=== PATIENT | male | born 1955 | race Caucasian/White ===

== ENCOUNTER 2017-10-13 09:25 | Day surgery (SDC) | payer BC ==
[2017-10-03 15:34] VITALS: BMI 25.4
[~2017-10-13 09:25] MED LIST: oxyCODONE HCL 10 MG SUSTAINED ACTING TABLET PO ONE
[2017-10-13] MEDS ORDERED: THROMBIN (BOVINE) 5,000 UNIT VIAL TP ONE ×3 (10:05→12:20)
[2017-10-13] MEDS ORDERED: methylPREDNISolone ACET (DEPO) 40 MG/1 ML VIAL ONE (10:06)
[2017-10-13] MEDS ORDERED: LIDOCAINE 1%/EPI 1:100000 (20 ML MULTI DOSE VIAL) ONE (10:06)
[2017-10-13] MEDS ORDERED: MIDAZOLAM HCL 2 MG/2 ML SINGLE DOSE VIAL ONE ×2 (10:27→11:29)
[2017-10-13] MEDS ORDERED: DEXAMETHASONE SOD PHOSPHATE/PF 10 MG/ML SDV ONE (10:27)
[2017-10-13] MEDS ORDERED: BUPIVACAINE HCL/PF (5 MG/ML) 30 ML VIAL IJ ONE (10:27)
--- NOTE | 2017-10-13 10:49 | HP ---
History & Physical Update - History History: No Change - Physical Physical: No Change - Assessment Assessment: No Change - Plan Plan: No Change
[2017-10-13] MEDS ORDERED: ceFAZolin SODIUM 1 GM VIAL ONE (10:59)
[2017-10-13] MEDS ORDERED: SUCCINYLCHOLINE CHLORIDE 200 MG/10 ML VIAL ONE (10:59)
[2017-10-13] MEDS ORDERED: LIDOCAINE 1%/EPI 1:100000 (20 ML MULTI DOSE VIAL) INF ONE (11:47)
[2017-10-13] MEDS ORDERED: methylPREDNISolone ACET (DEPO) 40 MG/1 ML VIAL IM ONE ×2 (11:48→12:19)
[2017-10-13] MEDS ORDERED: GELATIN SPONGE,ABSORBABLE 1 GM PACKET TP ONE ×2 (11:50→12:20)
[2017-10-13] MEDS ORDERED: PROPOFOL 20 ML ONE (11:51)
--- NOTE | 2017-10-13 12:50 | SURG ---
Surgery Flat Bed Knitter Note Flat Bed Knitter: Evelyn Riley PA-C Date of Service: 10/13/17 Diagnosis: lumbar stenosis Procedure: laminectomy of L4-L5 and L5-S1 I was present for the entirety of the operative procedure. For further detail, please refer to operative report. Visit type - Case Type Case Type: Scheduled Admission - Emergency Emergency Visit: No - New patient This patient is new to me today: Yes Date on this admission: 10/13/17
--- NOTE | 2017-10-13 12:50 | OP ---
Operative Note - Note: Operative Date: 10/13/17 Pre-Operative Diagnosis: lumbar stenosis Operation: L4/5 and L5/S1 laminectomy Surgeon: Lawson Gotti Emergency Generator Mechanic: Evelyn Riley Anesthesiologist/GRINDER DRESSER: Gabi Avila Anesthesia: Spinal Estimated Blood Loss (mls): 30 Fluid Volume Replaced (mls): 800 Operative Report Dictated: Yes
[2017-10-13] MEDS ORDERED: oxyCODONE HCL 5 MG TABLET PO PRN (14:20)
[2017-10-13] MEDS ORDERED: ONDANSETRON 4 MG/2 ML VIAL IVPUSH PRN (14:20)
[2017-10-13] MEDS ORDERED: LACTATED RINGERS SOLUTION 1,000 ML IV SCH (14:30)
[2017-10-13] MEDS ORDERED: oxyCODONE HCL 5 MG TABLET ONE (15:13)
[2017-10-13 16:02] VITALS: BP 158/80; PULSE 67; TEMP 97.9
--- NOTE | 2017-10-13 21:50 | OP ---
DATE OF OPERATION: 10/13/2017 PREOPERATIVE DIAGNOSIS: Spinal stenosis, L4 to S1. POSTOPERATIVE DIAGNOSIS: Spinal stenosis, L4 to S1. PROCEDURE PERFORMED: Laminectomy, L4-5 and L5-S1. SURGEON: Lawson Gotti MD WAGON WASHER: KENYON Garcia ESTIMATED BLOOD LOSS: 50 mL INTRAVENOUS FLUIDS: Per Anesthesia. ANESTHESIA: Spinal/TLIP. DISPOSITION: The patient brought to the PACU in stable condition. INDICATION FOR SURGERY: The patient is a 62-year-old gentleman who has been suffering from pain from his back down his leg. X-rays and MRI were completed which noted that he had spinal stenosis at L4-5 and L5-S1. He had gone through an exhaustive course of treatment for this, which included medications, physical therapy as well as injections. Unfortunately, his pain continued to persist despite all this. At this point, risks, benefits, and alternatives were discussed, and the patient consented to surgery. DESCRIPTION OF PROCEDURE: Patient was brought to the operating room by the Anesthesia staff. After appropriate patient identification was performed, spinal anesthesia was given. A TLIP block was also given. Patient was able to position himself prone onto the Lukas frame, and all areas of bony prominences were well padded at this time. Two needles were placed into his back to brennan off the L4 to S1 segments. X-ray was taken to confirm this as correct. Winston were removed, and 10 mL of lidocaine with epinephrine were injected in his back at this time. His back was prepped and draped in a sterile manner. At this point, a timeout was completed. An incision was made from the top of L4 down to the bottom of S1. Dissection was carried down to the fascia. Fascia was split open at this time, and appropriate retractors were then placed in. A spinal needle was placed onto the L5 lamina. An x-ray was taken to confirm this as correct. The needle was removed, and the microscope was brought in. At this point, the interspinous ligament at L4-5 and L5-S1 was removed. The spinous process at L5 was removed. The lamina of L5 was removed. A complete decompression was performed such that by the end of the procedure the L5 and S1 nerve roots appeared to be well decompressed. All bleeding was well controlled at this time. Steroid was placed over the nerve root. FloSeal was placed over that. The fascia was closed with a No. 1 Vicryl suture. Subcutaneous tissues were closed with 2-0 Vicryl suture. Skin was closed with 3-0 Monocryl suture. Dermabond was applied. Steri-Strips were applied. A sterile dressing was applied. Patient was placed supine on the OR bed and brought to the PACU in stable condition. Shiela TYLER/[id number]
== END 2017-10-13 16:03 | disposition home or self-care (01) ==
LOC: FASU 09:25
PROVIDERS: ATTEND Orthopaedic Surgery Orthopaedic Surgery of the Spine
PROC: 01NB0ZZ Release Lumbar Nerve, Open Approach (ICD-10-PCS; principal; 2017-10-13 11:38)
DX: M48.061 Spinal stenosis, lumbar region without neurogenic claudication (principal); M48.07 Spinal stenosis, lumbosacral region
CPT/HCPCS: 94760

== ENCOUNTER 2018-11-03 17:29 | Observation (INO) | payer BC ==
--- NOTE | 2018-11-03 17:45 | PDOC ---
Rapid Medical Evaluation Chief Complaint: Chest Pain Medical Evaluation: Allergies Allergy/AdvReac Type Severity Reaction Status Date / Time No Known Allergies Allergy Verified 10/03/17 15:21 I have performed a brief in-person evaluation of this patient. The patient presents with a chief complaint of: hx of HTN, HLD, GERD, depression , c/o sob and tightness across chest x 2 days Pertinent physical exam findings: In NAD, lungs clear I have ordered the following: Labs, CXR, EKG The patient will proceed to the ED for further evaluation. 11/03/18 17:40 Discharge Disposition - Discharge Dispostion Condition at time of disposition: Stable - Referrals - Patient Instructions - Post Discharge Activity
[2018-11-03 18:11] LABS: BASO % 0.8 % (0-2.0); EOS % 2.4 % (0-4.5); HEMATOCRIT 42.4 % (35.4-49); HEMOGLOBIN 14.7 GM/dL (11.7-16.9); MCH 30.8 pg (25.7-33.7); MCHC 34.7 g/dl (32.0-35.9); MEAN PLT VOLUME 9.3 fl (7.5-11.1); MONO % 14.3 % (3.8-10.2); NEUT % 55.5 % (42.8-82.8); PLATELET COUNT 195 K/MM3 (134-434); RBC 4.76 M/mm3 (4.00-5.60); RDW 16.2 % (11.9-15.9); WHITE BLOOD COUNT 6.5 K/mm3 (4.0-10.0)
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
[2018-11-03] MEDS ORDERED: ASPIRIN 81 MG CHEWABLE TABLETS PO ONE ×2 (18:33→18:34)
[2018-11-03 18:38] LABS: ANION GAP 9 MMOL/L (8-16); BLOOD UREA NITROGEN 16 mg/dL (7-18); CALCIUM 9.8 mg/dL (8.5-10.1); CHLORIDE 102 mmol/L (98-107); CO2 27 mmol/L (21-32); GLUCOSE,RANDOM 92 mg/dL (74-106); POTASSIUM 4.2 mmol/L (3.5-5.1); SODIUM 138 mmol/L (136-145)
[2018-11-03] MEDS ORDERED: ASPIRIN 81 MG CHEWABLE TABLETS ONE (19:37)
--- NOTE | 2018-11-03 19:39 | PDOC ---
Attending Attestation - HPI HPI: 11/03/18 19:57 The patient is a 63 year old male with a significant past medical history of hypertension who presents to the emergency department with chest pain since earlier today.. The patient reports that he was driving home from work today when he felt an onset of chest pain. He states that his chest pain is felt across his chest but is non radiating. The patient states that he had a similar episode yesterday by which he was seen at [facility] and given medication and advised to go the the ED. the patient reports that his chest pain is worsened with inspiration and lasts several seconds. He states that he has had stress tests in the past but does not recall when his last one was. He also reports family history or SD (brother and sister ). He also reports some productive cough with his symptoms. The patient denies any other symptoms or complaints. Documentation prepared by Brenda Pop, acting as medical imaging specialist for Rama Pickett MD. <Brenda Pop - Last Filed: 11/03/18 19:50> - Resident Resident Name: Thang Canela - ED Attending Attestation I have performed the following: I have examined & evaluated the patient, The case was reviewed & discussed with the resident, I agree w/resident's findings & plan - Physicial Exam PE: 11/03/18 20:02 Agree with resident's exam - Medical Decision Making 11/03/18 20:03 63-year-old male with history of hypertension presents with chest pain Patient has multiple risk factors and repeated episodes of pain over the last 48 hours now worsening, Plan for admission to medical service for serial enzymes and further evaluation EKG showed a normal sinus rhythm at 82 beats [address] elevations There is a right bundle-branch block present On reevaluation at 7:57 PM patient is chest pain-free <Rama Pickett - Last Filed: 11/03/18 20:03>
[2018-11-03] MEDS ORDERED: cloNIDine HCL 0.1 MG TABLET PO ONE (21:30)
--- NOTE | 2018-11-03 22:19 | PN ---
Teaching Attending Note Name of Resident: Shweta Lopes ATTENDING PHYSICIAN STATEMENT I saw and evaluated the patient. I reviewed the resident's note and discussed the case with the resident. I agree with the resident's findings and plan as documented. SUBJECTIVE: Seen and examined; please refer to resident note for further historical documentation. Briefly, this is a 63 y/o male presenting with 2 days of chest discomfort. Yesterday at work he noted some chest heaviness substernally that waxed and waned and his coworker noted a conjunctival hemorrhage. He went to urgent care who gave him BP medication (HCTZ 12.5) and diagnosed him with HTN; unknown how high his values were then. They encouraged him to go to the ER but he declined. Today, his CP worsened and it became more frequent so he came in. He had a remote stress test and no history of cath. Once saw a salad counter attendant but hasn't seen one here in years. 10 sys ROS done and negative aside from HPI PMH, PSH, Family hx, Social hx reviewed Medication list pending reconciliation OBJECTIVE: VS, labs, imaging reviewed NAD, AAO, resting comfortably in bed NC AT EOMI PERRLA RRR s1/2 slight systolic murmur no S3/4 Lungs CTAB, w/ sym CN2-12 wnl, no fnd Normal mood, appropriate behavior EKG reviewed CXR reviewed Initial troponin negative ASSESSMENT AND PLAN: Patient presents with chest tightness and hypertensive urgency; negative EKG/ troponin. Will need to control BP and r/o ACS 1) Hypertensive Urgency -Telemetry; he took his home dose of HCTZ 12.5 at home and was also treated in ER. BP now 170s with initially in 190s. Would ideally like SBP 150-160 range. Giving additional PRNs now; can try hydralazine overnight. Add norvasc 5 as given his degree of HTN he will likely require 2 agents for retirement control and the norvasc will take some time to take effect 2) Chest Discomfort, r/o ACS -Telemetry, trend troponin, check A1c/TSH/Lipids. He has risk factors for ACS. Checking echo. CV consult in the AM for stress testing recommendations. 3) HLD -Continue statin; check lipids Full Code
[2018-11-03] MEDS ORDERED: hydrALAZINE HCL 20 MG/ML VIAL IVPUSH PRN (22:42)
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
[2018-11-03] MEDS ORDERED: cloNIDine HCL 0.1 MG TABLET ONE (22:56)
[2018-11-03] MEDS ORDERED: amLODIPine BESYLATE 5 MG TABLET (FP) PO ONE (22:58)
[2018-11-03] MEDS ORDERED: amLODIPine BESYLATE 5 MG TABLET (FP) ONE (23:54)
[2018-11-04] MEDS ORDERED: ZOLPIDEM TARTRATE 5 MG TABLET ONE (00:39)
[2018-11-04] MEDS: ZOLPIDEM TARTRATE 5 MG TABLET PO PRN ×2 (00:41→21:46)
[2018-11-04 06:42] LABS: HEMATOCRIT 40.8 % (35.4-49); HEMOGLOBIN 13.8 GM/dL (11.7-16.9); LYMPH % 20.8 % (8-40); MCH 30.2 pg (25.7-33.7); MCHC 33.9 g/dl (32.0-35.9); MEAN CELL VOLUME 88.9 fl (80-96); MEAN PLT VOLUME 9.1 fl (7.5-11.1); MONO % 13.9 % (3.8-10.2); NEUT % 59.3 % (42.8-82.8); PLATELET COUNT 194 K/MM3 (134-434); RBC 4.59 M/mm3 (4.00-5.60); RDW 16.3 % (11.9-15.9); WHITE BLOOD COUNT 5.3 K/mm3 (4.0-10.0)
[2018-11-04 07:47] LABS: CHOLESTEROL 169 mg/dL (50-200); HDL CHOLESTEROL 56 mg/dL (40-60); TRIGLYCERIDES 88 mg/dL (0-150)
[2018-11-04 08:07] LABS: ANION GAP 6 MMOL/L (8-16); BLOOD UREA NITROGEN 18 mg/dL (7-18); CALCIUM 8.6 mg/dL (8.5-10.1); CHLORIDE 102 mmol/L (98-107); CO2 27 mmol/L (21-32); GLUCOSE,RANDOM 99 mg/dL (74-106); MAGNESIUM 2.5 mg/dL (1.8-2.4); PHOSPHOROUS 3.6 mg/dL (2.5-4.9); POTASSIUM 4.1 mmol/L (3.5-5.1); SODIUM 135 mmol/L (136-145)
--- NOTE | 2018-11-04 08:53 | PN ---
Progress Note, Physician Chief Complaint: No c/o chest pain or SOB - Current Medication List Current Medications: Active Medications Amlodipine Besylate (Norvasc -) 5 mg PO DAILY JEANNIE Aspirin (Ecotrin -) 81 mg PO DAILY JEANNIE Atorvastatin Calcium (Lipitor -) 20 mg PO HS JEANNIE Chlorthalidone (Hygroton -) 12.5 mg PO DAILY JEANNIE Enoxaparin Sodium (Lovenox -) 40 mg SQ DAILY JEANNIE Pantoprazole Sodium (Protonix -) 20 mg PO DAILY JEANNIE Quetiapine Fumarate (Seroquel -) 25 mg PO HS JEANNIE Zolpidem Tartrate (Ambien -) 5 mg PO HS PRN PRN Reason: INSOMNIA Last Admin: 11/04/18 00:41 Dose: 5 mg - Objective Vital Signs: Vital Signs Temperature 98.1 F 11/04/18 07:15 Pulse Rate 66 11/04/18 07:15 Respiratory Rate 16 11/04/18 07:15 Blood Pressure 131/67 11/04/18 07:15 O2 Sat by Pulse Oximetry (%) 100 11/04/18 07:15 Elderly M HEENT: NECK: CHEST: CVS: ABD: EXT: [employer] SECURITIES TRADER: DERM: Labs: CBC, BMP 11/04/18 05:30 11/04/18 05:30 - ....Imaging Chest X-ray: Report Reviewed (Normal) EKG: Report Reviewed (No acute St T chnages) Problem List - Problems (1) Chest pain Code(s): R07.9 - CHEST PAIN, UNSPECIFIED Qualifiers: Chest pain type: chest pain on breathing Qualified Code(s): R07.1 - Chest pain on breathing; R07.81 - Pleurodynia (2) HTN (hypertension) Code(s): I10 - ESSENTIAL (PRIMARY) HYPERTENSION (3) Hypercholesteremia Code(s): E78.00 - PURE HYPERCHOLESTEROLEMIA, UNSPECIFIED (4) Depressed Code(s): F32.9 - MAJOR DEPRESSIVE DISORDER, SINGLE EPISODE, UNSPECIFIED
[2018-11-04] MEDS: PANTOPRAZOLE 20 MG TABLET (FP) PO SCH (10:00)
[2018-11-04] MEDS: ASPIRIN COATED 81 MG TABLET.EC PO SCH (10:00)
[2018-11-04] MEDS: CHLORTHALIDONE 25 MG TABLET PO SCH (10:00)
[2018-11-04] MEDS: amLODIPine BESYLATE 5 MG TABLET (FP) PO SCH (10:00)
[2018-11-04] MEDS: ENOXAPARIN NA (PORCINE) 40 MG/0.4 ML DISP.SYRIN SQ SCH (10:00)
--- NOTE | 2018-11-04 10:44 | EKG ---
Test Reason : Blood Pressure : / mmHG Vent. Rate : 082 BPM Atrial Rate : 082 BPM P-R Int : 134 ms QRS Dur : 102 ms QT Int : 382 ms P-R-T Axes : 039 -11 038 degrees QTc Int : 446 ms NORMAL SINUS RHYTHM INCOMPLETE RIGHT BUNDLE BRANCH BLOCK BORDERLINE ECG NO PREVIOUS ECGS AVAILABLE Confirmed by SHIVANI KENNEDY MD ([id number]) on 11/04/2018 10:44:25 AM Referred By: Confirmed By:SHIVANI KENNEDY MD
--- NOTE | 2018-11-04 12:52 | ECHO ---
Name: RIDER, BATISTA Exam:Adult Echocardiogram Study Date: 11/04/2018 10:07 AM Age: 63 yrs Reason For Study: chest pain Height: 65 in Weight: 153 lb BSA: 1.8 m2 MMode/2D Measurements & Calculations IVSd: 1.2 cm Ao root diam: 3.6 cm LVIDd: 4.0 cm LA dimension: 3.5 cm LVIDs: 2.5 cm ACS: 1.9 cm LVPWd: 1.0 cm IVSs: 1.2 cm LVPWs: 1.5 cm EDV(Teich): 71.2 ml ESV(Teich): 22.5 ml Doppler Measurements & Calculations MV E max etienne: 50.3 cm/sec Ao V2 max: 127.7 cm/sec MV A max etienne: 74.0 cm/sec Ao max P.5 mmHg MV E/A: 0.68 Ao V2 mean: 84.0 cm/sec Ao mean P.2 mmHg Ao V2 VTI: 22.2 cm TR max etienne: 115.4 cm/sec Med Peak E' Etienne: 5.0 cm/sec TR max P.3 mmHg Med E/e': 10.1 Lat Peak E' Etienne: 4.6 cm/sec Lat E/e': 11.0 Procedure A two-dimensional transthoracic echocardiogram with color flow and Doppler was performed. Left Ventricle The left ventricular size, thickness and function are normal. The left ventricular ejection fraction is normal. E/A reversal consistent with but not diagnostic of poor LV compliance. The left ventricular w all motion is normal. Right Ventricle The right ventricle is normal in size and function. A moderator band is seen in the right ventricle. Atria Normal left and right atrial size and function. Mitral Valve There is mild mitral valve thickening. There is no mitral valve stenosis. There is mild mitral regurg itation. Tricuspid Valve There is mild tricuspid valve thickening. There is no tricuspid stenosis. There is mild tricuspid regurgitation. Right ventricular systolic pressure is normal. Aortic Valve The aortic valve is normal in structure and function. No hemodynamically significant valvular aortic stenosis. No aortic regurgitation is present. Pulmonic Valve The pulmonic valve is not well visualized. Great Vessels The aortic root is normal size. Pericardium/Pleura There is no pericardial effusion. Interpretation Summary The left ventricular ejection fraction is normal. The left ventricular size, thickness and function are normal The left ventricular wall motion is normal. There is mild mitral regurgitation. There is mild tricuspid regurgitation. Right ventricular systolic pressure is normal. E/A reversal consistent with but not diagnostic of poor LV compliance A moderator band is seen in the right ventricle. MD Andrea Patrick 11/04/2018 12:51 PM
--- NOTE | 2018-11-04 14:47 | PN ---
Physical Exam: SUBJECTIVE: Patient seen and examined Pt son was present at bed side who states that yesterday when his father complaint of chest pain at the same time he has slurred speech, some tingling sensation in right leg, and confusion. But now he is back to base line. States he was never on htn medication. OBJECTIVE: Vital Signs Period Temp Pulse Resp BP Sys/Stewart Pulse Ox Last 24 Hr 97.9 F-99.0 F 66-82 16-99 119-195/64-93 97-100 GENERAL: Awake, alert, and fully oriented, in no acute distress. HEAD: Normal with no signs of trauma. EYES: PERRLA, EOMI, sclera anicteric,+Left conjunctival injection EARS, NOSE, THROAT: Ears normal, oropharynx clear without exudates. Moist mucous membranes. NECK: Normal range of motion, supple without lymphadenopathy, JVD, or masses. LUNGS: Breath sounds equal, clear to auscultation bilaterally. HEART: Regular rate and rhythm, normal S1 and S2 without murmur, rub or gallop. ABDOMEN: Soft, nontender, not distended, normoactive bowel sounds. MUSCULOSKELETAL: Normal range of motion at all joints. No CVA tenderness. UPPER EXTREMITIES: 2+ pulses, warm, well-perfused. No peripheral edema. LOWER EXTREMITIES: 2+ pulses, warm, well-perfused. No peripheral edema. NEUROLOGICAL: Cranial nerves II-XII intact. Motor strength 5/5, sensation intact. Normal speech. Normal gait. PSYCHIATRIC: Cooperative. Good eye contact. Appropriate mood and affect. SKIN: Warm, dry, normal turgor, no rashes or lesions. Laboratory Results - last 24 hr 11/03/18 11/03/18 11/03/18 17:52 17:52 21:10 WBC 6.5 RBC 4.76 Hgb 14.7 Hct 42.4 MCV 89.0 MCH 30.8 MCHC 34.7 RDW 16.2 H Plt Count 195 MPV 9.3 Absolute Neuts (auto) 3.6 Neutrophils % 55.5 Lymphocytes % 27.0 Monocytes % 14.3 H Eosinophils % 2.4 Basophils % 0.8 Nucleated RBC % 0 D-Dimer Sodium 138 Potassium 4.2 Chloride 102 Carbon Dioxide 27 Anion Gap 9 BUN 16 Creatinine 1.0 Creat Clearance w eGFR > 60 Random Glucose 92 Hemoglobin A1c % Calcium 9.8 Phosphorus Magnesium Troponin I 0.02 0.02 Triglycerides Cholesterol Total LDL Cholesterol HDL Cholesterol Vitamin B12 Serum Folate TSH 11/03/18 11/04/18 11/04/18 23:25 05:30 05:30 WBC 5.3 RBC 4.59 Hgb 13.8 Hct 40.8 MCV 88.9 MCH 30.2 MCHC 33.9 RDW 16.3 H Plt Count 194 MPV 9.1 Absolute Neuts (auto) 3.1 Neutrophils % 59.3 Lymphocytes % 20.8 D Monocytes % 13.9 H Eosinophils % 5.0 H D Basophils % 1.0 Nucleated RBC % 0 D-Dimer < 215 Sodium 135 L Potassium 4.1 Chloride 102 Carbon Dioxide 27 Anion Gap 6 L BUN 18 Creatinine 1.0 Creat Clearance w eGFR > 60 Random Glucose 99 Hemoglobin A1c % Calcium 8.6 Phosphorus 3.6 Magnesium 2.5 H Troponin I Triglycerides Cholesterol Total LDL Cholesterol HDL Cholesterol Vitamin B12 Serum Folate 29 H TSH 4.84 H 11/04/18 11/04/18 11/04/18 05:30 05:30 05:30 WBC RBC Hgb Hct MCV MCH MCHC RDW Plt Count MPV Absolute Neuts (auto) Neutrophils % Lymphocytes % Monocytes % Eosinophils % Basophils % Nucleated RBC % D-Dimer Sodium Potassium Chloride Carbon Dioxide Anion Gap BUN Creatinine Creat Clearance w eGFR Random Glucose Hemoglobin A1c % 5.6 Calcium Phosphorus Magnesium Troponin I 0.02 Triglycerides 88 Cholesterol 169 Total LDL Cholesterol 104 H HDL Cholesterol 56 Vitamin B12 587 Serum Folate TSH Active Medications Generic Name Dose Route Start Last Admin Trade Name Freq PRN Reason Stop Dose Admin Amlodipine Besylate 5 mg 11/04/18 10:00 11/04/18 10:00 Norvasc - PO 5 mg DAILY JEANNIE Administration Aspirin 81 mg 11/04/18 10:11/04/18 10:00 Ecotrin - PO 81 mg DAILY JEANNIE Administration Atorvastatin Calcium 20 mg 11/04/18 22:00 Lipitor - PO HS [facility] Chlorthalidone 12.5 mg 11/04/18 10:00 11/04/18 10:00 Hygroton - PO 12.5 mg DAILY JEANNIE Administration Enoxaparin Sodium 40 mg 11/04/18 10:00 11/04/18 10:00 Lovenox - SQ 40 mg DAILY JEANNIE Administration Pantoprazole Sodium 20 mg 11/04/18 10:00 11/04/18 10:00 Protonix - PO 20 mg DAILY JEANNIE Administration Quetiapine Fumarate 25 mg 11/04/18 22:00 Seroquel - PO HS JEANNIE Zolpidem Tartrate 5 mg 11/04/18 22:00 11/04/18 00:41 Ambien - PO 5 mg HS PRN Administration INSOMNIA ASSESSMENT/PLAN: Patient is a 63 year old male with past medical history of HTN, HLD, GERD and Depression presented with sudden intermittent episodes of chest pain that started at 4pm today. #Hypertensive urgency with htn encephalopathy - pt feels good, back to base line as per family. - bp well controlled with amlodipine and chlorthalidone - monitor vital - ct chest negative - doppler neck no significant stenosis - echo reviewed - cardiology and neuology consult. #Chest pain, rule out ACS -Trop 0.02 x2, EKG NSR with nor ST-T wave changes -will continue ASA 81mg daily -Tele monitoring -Cardiology (Dr. Bradley) #HLD -Continue home Lipitor 20mg -Lipid profile ordered #FEN -Not on any standing fluids -Electrolytes wnl, routine bmp monitoring #Prophylaxis -Lovenox 40mg sq daily #Disposition -full code -tele obs Visit type - Emergency Visit Emergency Visit: Yes ED Registration Date: 11/03/18 Care time: The patient presented to the Emergency Department on the above date and was hospitalized for further evaluation of their emergent condition. - New Patient This patient is new to me today: No - Critical Care Critical Care patient: No
--- NOTE | 2018-11-04 15:12 | CON.CARD ---
Consult Consult Specialty:: Cardiology Referred by:: ER Reason for Consultation:: chest pain - History of Present Illness Chief Complaint: chest pain History of Present Illness: Patient is a 63 year old male with past medical history of HTN, HLD, GERD and Depression presented with sudden intermittent episodes of chest pain that is nonexertional, pleuritic, with sob that has been occurring for one day. No associated symptoms. No radiation. Baseline exercise tolerance is good. ECG showed irbbb aroldo negative. CXR negative. - History Source History Provided By: Patient, Medical Record - Alcohol/Substance Use Hx Alcohol Use: No - Smoking History Smoking history: Never smoked Have you smoked in the past 12 months: No If you are a former smoker, when did you quit?: 40 YEARS AGO Home Medications - Allergies Allergies/Adverse Reactions: Allergies Allergy/AdvReac Type Severity Reaction Status Date / Time No Known Allergies Allergy Verified 10/03/17 15:21 - Home Medications Home Medications: Ambulatory Orders Atorvastatin Ca [Lipitor] 20 mg PO HS 11/03/18 Chlorthalidone 25 mg PO DAILY 11/03/18 Esomeprazole Magnesium [Nexium 24Hr] 20 mg PO DAILY 11/03/18 Quetiapine Fumarate [Seroquel -] 25 mg PO HS 11/03/18 Zolpidem Tartrate [Ambien] 5 mg PO HS 11/03/18 Vital Signs: Vital Signs Temperature 99.0 F 11/04/18 14:00 Pulse Rate 82 11/04/18 14:00 Respiratory Rate 20 11/04/18 14:00 Blood Pressure 119/64 11/04/18 14:00 O2 Sat by Pulse Oximetry (%) 100 11/04/18 10:00 Constitutional: Yes: No Distress, Calm Eyes: Yes: Conjunctiva Clear, EOM Intact HENT: Yes: Atraumatic, Normocephalic Neck: Yes: Supple, Trachea Midline Respiratory: Yes: CTA Bilaterally Gastrointestinal: Yes: Normal Bowel Sounds, Soft Cardiovascular: Yes: Regular Rate and Rhythm JVD: No Carotid Bruit: No PMI: Non-Displaced Heart Sounds: Yes: S1, S2 Musculoskeletal: Yes: WNL Extremities: Yes: WNL Edema: No Peripheral Pulses WNL: Yes - Other Data Labs, Other Data: CBC, BMP 11/04/18 05:30 11/04/18 05:30 Troponin, BNP 02/11/03/18 11/04/18 17:52 21:10 05:30 Troponin I 0.02 0.02 0.02 Troponin, BNP 11/03/18 11/03/18 11/04/18 17:52 21:10 05:30 Troponin I 0.02 0.02 0.02 Imaging - Results Chest X-ray: Report Reviewed EKG: Report Reviewed (nsr irbbb) Assessment/Plan Patient is a 63 year old male with past medical history of HTN, HLD, GERD and Depression presented with sudden intermittent episodes of chest pain that is nonexertional, pleuritic, with sob that has been occurring for one day. No associated symptoms. No radiation. Baseline exercise tolerance is good. ECG showed irbbb aroldo negative. CXR negative. chest pain--atypical for angina. troponin and d dimer are negative CXR and ecg negative would dc home for outpatient workup.
--- NOTE | 2018-11-04 17:19 | PN ---
Teaching Attending Note Name of Resident: Radu Slaazar ATTENDING PHYSICIAN STATEMENT I saw and evaluated the patient. I reviewed the resident's note and discussed the case with the resident. I agree with the resident's findings and plan as documented. 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 ASSESSMENT AND PLAN: 63 yrs old man with H/O HTN non compliant present with chest pain that is pleuritic with confusion and slurring of speech observed by the son, normal serail CE and ECHO Problem List - Problems (1) Chest pain Assessment/Plan: atypical with chest wall tenderness, no dynamic St T chnages, evaluted by cardiology normal EKG cleared to Dc home Code(s): R07.9 - CHEST PAIN, UNSPECIFIED Qualifiers: Chest pain type: chest pain on breathing Qualified Code(s): R07.1 - Chest pain on breathing; R07.81 - Pleurodynia (2) HTN (hypertension) Assessment/Plan: admitted with uncontrolled HTN BP is well controlled cont current management Code(s): I10 - ESSENTIAL (PRIMARY) HYPERTENSION (3) Hypercholesteremia Assessment/Plan: Cont statin Code(s): E78.00 - PURE HYPERCHOLESTEROLEMIA, UNSPECIFIED (4) Slurring of speech Assessment/Plan: resolved in the setting of hypertensive urgency needs w/u for TIA Code(s): R47.81 - SLURRED SPEECH
[2018-11-04] MEDS: QUEtiapine FUMARATE 25 MG TABLET (FP) PO SCH (21:46)
[2018-11-04] MEDS: ATORVASTATIN CA 20 MG TABLET (FP) PO SCH (21:46)
[2018-11-05 00:58] VITALS: BMI 24.4
--- NOTE | 2018-11-05 07:45 | PN ---
Teaching Attending Note Name of Resident: Radu Salazar ATTENDING PHYSICIAN STATEMENT I saw and evaluated the patient. I reviewed the resident's note and discussed the case with the resident. I agree with the resident's findings and plan as documented. 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 ASSESSMENT AND PLAN: 63 yrs old man with H/O HTN non compliant present with chest pain that is pleuritic with confusion and slurring of speech observed by the son, normal serial CE and ECHO Problem List - Problems (1) Chest pain Assessment/Plan: atypical with chest wall tenderness, no dynamic St T chnages, evaluted by cardiology normal EKG cleared to Dc home Code(s): R07.9 - CHEST PAIN, UNSPECIFIED Qualifiers: Chest pain type: chest pain on breathing Qualified Code(s): R07.1 - Chest pain on breathing; R07.81 - Pleurodynia (2) HTN (hypertension) Assessment/Plan: admitted with uncontrolled HTN BP is well controlled cont current management Code(s): I10 - ESSENTIAL (PRIMARY) HYPERTENSION (3) Hypercholesteremia Assessment/Plan: Cont statin Code(s): E78.00 - PURE HYPERCHOLESTEROLEMIA, UNSPECIFIED (4) Slurring of speech Assessment/Plan: resolved in the setting of hypertensive urgency needs w/u for TIA F/U MRI , Neurology input appreciated. Code(s): R47.81 - SLURRED SPEECH
--- NOTE | 2018-11-05 08:27 | DS ---
Physical Exam: SUBJECTIVE: Patient seen and examined OBJECTIVE: Vital Signs Period Temp Pulse Resp BP Sys/Stewart Pulse Ox Last 24 Hr 97.8 F-99.0 F 67-82 16-20 114-164/59-82 98-100 PHYSICAL EXAM GENERAL: Awake, alert, and fully oriented, in no acute distress. HEAD: Normal with no signs of trauma. EYES: PERRLA, EOMI, sclera anicteric,+Left conjunctival injection EARS, NOSE, THROAT: Ears normal, oropharynx clear without exudates. Moist mucous membranes. NECK: Normal range of motion, supple without lymphadenopathy, JVD, or masses. LUNGS: Breath sounds equal, clear to auscultation bilaterally. HEART: Regular rate and rhythm, normal S1 and S2 without murmur, rub or gallop. ABDOMEN: Soft, nontender, not distended, normoactive bowel sounds. MUSCULOSKELETAL: Normal range of motion at all joints. No CVA tenderness. UPPER EXTREMITIES: 2+ pulses, warm, well-perfused. No peripheral edema. LOWER EXTREMITIES: 2+ pulses, warm, well-perfused. No peripheral edema. NEUROLOGICAL: Cranial nerves II-XII intact. Motor strength 5/5, sensation intact. Normal speech. Normal gait. PSYCHIATRIC: Cooperative. Good eye contact. Appropriate mood and affect. SKIN: Warm, dry, normal turgor, no rashes or lesions. LABS CBCD WBC 5.3 K/mm3 (4.0-10.0) 11/04/18 05:30 RBC 4.59 M/mm3 (4.00-5.60) 11/04/18 05:30 Hgb 13.8 GM/dL (11.7-16.9) 11/04/18 05:30 Hct 40.8 % (35.4-49) 11/04/18 05:30 MCV 88.9 fl (80-96) 11/04/18 05:30 MCHC 33.9 g/dl (32.0-35.9) 11/04/18 05:30 RDW 16.3 % (11.9-15.9) H 11/04/18 05:30 Plt Count 194 K/MM3 (134-434) 11/04/18 05:30 MPV 9.1 fl (7.5-11.1) 11/04/18 05:30 CMP Sodium 135 mmol/L (136-145) L 11/04/18 05:30 Potassium 4.1 mmol/L (3.5-5.1) 11/04/18 05:30 Chloride 102 mmol/L (98-107) 11/04/18 05:30 Carbon Dioxide 27 mmol/L (21-32) 11/04/18 05:30 Anion Gap 6 MMOL/L (8-16) L 11/04/18 05:30 BUN 18 mg/dL (7-18) 11/04/18 05:30 Creatinine 1.0 mg/dL (0.55-1.3) 11/04/18 05:30 Creat Clearance w eGFR > 60 (>60) 11/04/18 05:30 Random Glucose 99 mg/dL (74-106) 11/04/18 05:30 Calcium 8.6 mg/dL (8.5-10.1) 11/04/18 05:30 CARDIAC ENZYMES Troponin I 0.02 ng/ml (0.00-0.05) 11/04/18 05:30 CT scan of the brain without intravenous contrast. There is mild volume loss. The ventricles and basal cisterns appear unremarkable. No mass lesion, gross acute infarct or intracranial hemorrhage are identified. There is no shift of the midline structures. Visualized paranasal sinuses and mastoid air cells are well aerated. The calvarium is intact. IMPRESSION: Mild volume loss. No gross acute intracranial pathology is identified. Correlate clinically to determine further evaluation and follow-up. HOSPITAL COURSE:Patient is a 63 year old male with past medical history of HTN, HLD, GERD and Depression presented with sudden intermittent episodes of chest pain that started at 4pm today. Patient reported experiencing sudden onset 5-6/ 10 chest pressure right after work while driving home, that was worsened with deep breathing. This lasted for a few minutes and has recurred about 5 more times before he came to the ED. Patient denies any SOB, palpitations, headache, dizziness. Patient was seen yesterday at the Urgent care center because he noted his left eye was red. His blood pressure was noted to be elevated and he was prescribed Chlorthalidone 12.5mg for which he took at around noon today. 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 And since then, has not had any palpitations, chest pain or SOB, until today. Patient denies any fever, chills, headache, dizziness, nausea, vomiting, abdominal pain, diarrhea, urinary symptoms. Pt found to have hypertensive urgency. In hospital pt got amlodine and chlorthalidone and his bp came down slowly. As his bp came down his symptoms of confusion and tingling in right leg resolved. Pt was monitored on tele floor and manager cardiac didn't show any acute event. Neurology was consulted. Pt got carotid doppler, mra neck and brain and echo. Now pt is feeling goodand all of his symptoms has resolved. Pt dc in stable condition Follow up with your primary care doctor Follow up with exercise science internship Dr. Bradley for further workup which can be done in out patient. Follow up with [facility] neurologist Take all the medicines as you were taking it before. We have started you on blood pressure medicine amlodipine 5 mg daily. We have also started you on baby aspirin Check your blood pressure regularly and make a log and give to your doctor. prescription for your meds have been sent to [facility] pharmacy [address] If you develop chest pain, shortness of breath, severe headache or any new symptoms then call your doctor or go to hospital . Date of Admission:11/03/18 Date of Discharge: 11/05/18 Minutes to complete discharge: 45 Discharge Summary Reason For Visit: CHEST PAIN Current Active Problems Chest pain (Acute) Depressed (Acute) HTN (hypertension) (Acute) Hypercholesteremia (Acute) Slurring of speech (Acute) Condition: Good - Instructions Diet, Activity, Other Instructions: Follow up with your primary care doctor Follow up with exercise science internship Dr. Bradley for further workup which can be done in out patient. Follow up with [facility] neurologist Take all the medicines as you were taking it before. We have started you on blood pressure medicine amlodipine 5 mg daily. We have also started you on baby aspirin Check your blood pressure regularly and make a log and give to your doctor. prescription for your meds have been sent to [facility] pharmacy [address] If you develop chest pain, shortness of breath, severe headache or any new symptoms then call your doctor or go to hospital Referrals: Franco Bradley MD [Staff Physician] - 1 Week Miguel Moreno MD [Primary Care Provider] - 1 Week Aravind Luna MD [Staff Physician] - 1 Week Disposition: HOME - Home Medications Comprehensive Discharge Medication List: Ambulatory Orders Atorvastatin Ca [Lipitor] 20 mg PO HS 11/03/18 Esomeprazole Magnesium [Nexium 24Hr] 20 mg PO DAILY 11/03/18 Quetiapine Fumarate [Seroquel -] 25 mg PO HS 11/03/18 Zolpidem Tartrate [Ambien] 5 mg PO HS 11/03/18 Amlodipine Besylate [Norvasc -] 5 mg PO DAILY #30 tablet 11/05/18 Aspirin Coated [Ecotrin -] 81 mg PO DAILY #30 tablet.ec 11/05/18 Chlorthalidone 25 mg PO DAILY #30 tablet 11/05/18 This patient is new to me today: No Emergency Visit: Yes ED Registration Date: 11/03/18 Care time: The patient presented to the Emergency Department on the above date and was hospitalized for further evaluation of their emergent condition. Critical Care patient: No - Discharge Referral Referred to [facility] No
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
[2018-11-05] MEDS ORDERED: PT OWN MED DRAWER 7, Y5N ONE (09:42)
[2018-11-05] MEDS: CHLORTHALIDONE 25 MG TABLET PO SCH (09:44)
[2018-11-05] MEDS: PANTOPRAZOLE 20 MG TABLET (FP) PO SCH (09:44)
[2018-11-05] MEDS: amLODIPine BESYLATE 5 MG TABLET (FP) PO SCH (09:44)
[2018-11-05] MEDS: ASPIRIN COATED 81 MG TABLET.EC PO SCH (09:44)
[2018-11-05] MEDS: ENOXAPARIN NA (PORCINE) 40 MG/0.4 ML DISP.SYRIN SQ SCH (09:45)
[2018-11-05] MEDS: ZOLPIDEM TARTRATE 5 MG TABLET PO PRN (21:25)
[2018-11-05] MEDS: ATORVASTATIN CA 20 MG TABLET (FP) PO SCH (21:25)
[2018-11-05] MEDS: QUEtiapine FUMARATE 25 MG TABLET (FP) PO SCH (21:25)
[2018-11-06 05:31] VITALS: BP 133/70; PULSE 68; TEMP 98.1
--- NOTE | 2018-11-06 08:59 | PN ---
Teaching Attending Note Name of Resident: Radu Salazar ATTENDING PHYSICIAN STATEMENT I saw and evaluated the patient. I reviewed the resident's note and discussed the case with the resident. I agree with the resident's findings and plan as documented. SUBJECTIVE: OBJECTIVE: Vital Signs Temperature 98.1 F 11/06/18 05:31 Pulse Rate 68 11/06/18 05:31 Respiratory Rate 20 11/06/18 08:10 Blood Pressure 133/70 11/06/18 05:31 O2 Sat by Pulse Oximetry (%) 96 11/06/18 07:00 Elderly man comfortable not in distress HEENT: Mm moist, no anemia, PERRLA EOMI NECK: No JVd No Bruit CHEST: CTA B/L CVS: s1S2 R ABD: No distention, non tender Bs + EXT: No kaitlynn afeet, no calf tenderness, Pulses + EMPLOYMENT LEGAL ASSISTANT: AOX3 non focal LABS: CBC, BMP 11/04/18 05:30 11/04/18 05:30 CT Head; Normal CXR: normal ECHO normal CTA chest normal no PE or dissection Serial CE: normal EKG no acute St t changes Carotid Doppler; Multiple plaques B/L no hemodynamically significant narrowing or obstruction. MRI: shows no parenchymal lesion ASSESSMENT AND PLAN: 63 yrs old man with H/O HTN non compliant present with chest pain that is pleuritic with confusion and slurring of speech observed by the son, normal serial CE and ECHO Problem List - Problems (1) Chest pain Assessment/Plan: atypical with chest wall tenderness, no dynamic St T chnages, evaluated by cardiology normal EKG cleared to Dc home Code(s): R07.9 - CHEST PAIN, UNSPECIFIED Qualifiers: Chest pain type: chest pain on breathing Qualified Code(s): R07.1 - Chest pain on breathing; R07.81 - Pleurodynia (2) HTN (hypertension) Assessment/Plan: admitted with uncontrolled HTN BP is well controlled cont current management Code(s): I10 - ESSENTIAL (PRIMARY) HYPERTENSION (3) Hypercholesteremia Assessment/Plan: Cont statin Code(s): E78.00 - PURE HYPERCHOLESTEROLEMIA, UNSPECIFIED (4) Slurring of speech Assessment/Plan: resolved in the setting of hypertensive urgency needs w/u for TIA , MRI no acute infarct, , Neurology input appreciated. Code(s): R47.81 - SLURRED SPEECH
[2018-11-06] MEDS: amLODIPine BESYLATE 5 MG TABLET (FP) PO SCH (09:22)
[2018-11-06] MEDS: PANTOPRAZOLE 20 MG TABLET (FP) PO SCH (09:22)
[2018-11-06] MEDS: CHLORTHALIDONE 25 MG TABLET PO SCH (09:22)
[2018-11-06] MEDS: ASPIRIN COATED 81 MG TABLET.EC PO SCH (09:22)
[2018-11-06] MEDS: ENOXAPARIN NA (PORCINE) 40 MG/0.4 ML DISP.SYRIN SQ SCH (09:23)
--- NOTE | 2018-11-06 10:08 | PN ---
Progress Note (short form) - Note Progress Note: Neurology HISTORY OF PRESENT ILLNESS: 63 year old male with past medical history of HTN, HLD, GERD and Depression presented with sudden intermittent episodes of chest pain that started at 4pm on day of admission. Patient reported experiencing sudden onset 5-6/10 chest pressure right after work while driving home, that was worsened with deep breathing. This lasted for a few minutes and has recurred about 5 more times before he came to the ED. Patient denied any SOB, palpitations, headache, dizziness. His blood pressure was noted to be elevated and he was prescribed Chlorthalidone 12.5mg for which he took at around noon day of admission. Of note , patient reported having nuclear stress test done about 10 years ago because he was having "palpitations", but could not remember the power marketer or the center where he did the test. And since then, has not had any palpitations, chest pain or SOB, until today. Patient denies any fever, chills, headache, dizziness, nausea, vomiting, abdominal pain, diarrhea, urinary symptoms. Neurology consulted due to concern for episode of speech disturbance and confusion. During my evaluation, patient without deficits, speech seems intact , knows location, date, name of president. CT head completed and no acute changes. Carotid showed small to moderate plaques, there was suggestion of evaluating further with CTA or MRA. MRA head and neck completed and reviewed in detail. Discussed in detail, atheromatous changes on L with minimal stenosis, no dissection, anuerysm, or occlusion. Remains on anti-HTN medications, on ASA. Planned for discharge. Active Medications Amlodipine Besylate (Norvasc -) 5 mg PO DAILY [facility] Last Admin: 11/06/18 09:22 Dose: 5 mg Aspirin (Ecotrin -) 81 mg PO DAILY [facility] Last Admin: 11/06/18 09:22 Dose: 81 mg Atorvastatin Calcium (Lipitor -) 20 mg PO HS [facility] Last Admin: 11/05/18 21:25 Dose: 20 mg Chlorthalidone (Hygroton -) 12.5 mg PO DAILY [facility] Last Admin: 11/06/18 09:22 Dose: 12.5 mg Enoxaparin Sodium (Lovenox -) 40 mg SQ DAILY [facility] Last Admin: 11/06/18 09:23 Dose: Not Given Pantoprazole Sodium (Protonix -) 20 mg PO DAILY [facility] Last Admin: 11/06/18 09:22 Dose: 20 mg Quetiapine Fumarate (Seroquel -) 25 mg PO HS [facility] Last Admin: 11/05/18 21:25 Dose: 25 mg Zolpidem Tartrate (Ambien -) 5 mg PO HS PRN PRN Reason: INSOMNIA Last Admin: 11/05/18 21:25 Dose: 5 mg PHYSICAL EXAMINATION Vital Signs Period Temp Pulse Resp BP Sys/Stewart Pulse Ox Last 24 Hr 97.3 F-98.6 F 65-89 18-20 133-157/70-84 96-96 GENERAL: Awake, alert, and fully oriented, in no acute distress. HEAD: Normal with no signs of trauma. EYES: PERRLA, EOMI, sclera anicteric,+Left conjunctival injection EARS, NOSE, THROAT: Ears normal, oropharynx clear without exudates. Moist mucous membranes. NECK: Normal range of motion, supple without lymphadenopathy, JVD, or masses. LUNGS: Breath sounds equal, clear to auscultation bilaterally. HEART: Regular rate and rhythm, normal S1 and S2 without murmur, rub or gallop. ABDOMEN: Soft, nontender, not distended, normoactive bowel sounds. MUSCULOSKELETAL: Normal range of motion at all joints. No CVA tenderness. UPPER EXTREMITIES: 2+ pulses, warm, well-perfused. No peripheral edema. LOWER EXTREMITIES: 2+ pulses, warm, well-perfused. No peripheral edema. NEUROLOGICAL: Cranial nerves II-XII intact. Motor strength 5/5, sensation intact. Normal speech. PSYCHIATRIC: Cooperative. Good eye contact. Appropriate mood and affect. SKIN: Warm, dry, normal turgor, no rashes or lesions. CBCD WBC 5.3 K/mm3 (4.0-10.0) 11/04/18 05:30 RBC 4.59 M/mm3 (4.00-5.60) 11/04/18 05:30 Hgb 13.8 GM/dL (11.7-16.9) 11/04/18 05:30 Hct 40.8 % (35.4-49) 11/04/18 05:30 MCV 88.9 fl (80-96) 11/04/18 05:30 MCHC 33.9 g/dl (32.0-35.9) 11/04/18 05:30 RDW 16.3 % (11.9-15.9) H 11/04/18 05:30 Plt Count 194 K/MM3 (134-434) 11/04/18 05:30 MPV 9.1 fl (7.5-11.1) 11/04/18 05:30 CMP Sodium 135 mmol/L (136-145) L 11/04/18 05:30 Potassium 4.1 mmol/L (3.5-5.1) 11/04/18 05:30 Chloride 102 mmol/L (98-107) 11/04/18 05:30 Carbon Dioxide 27 mmol/L (21-32) 11/04/18 05:30 Anion Gap 6 MMOL/L (8-16) L 11/04/18 05:30 BUN 18 mg/dL (7-18) 11/04/18 05:30 Creatinine 1.0 mg/dL (0.55-1.3) 11/04/18 05:30 Creat Clearance w eGFR > 60 (>60) 11/04/18 05:30 Random Glucose 99 mg/dL (74-106) 11/04/18 05:30 Calcium 8.6 mg/dL (8.5-10.1) 11/04/18 05:30 CARDIAC ENZYMES Troponin I 0.02 ng/ml (0.00-0.05) 11/04/18 05:30 ASSESSMENT/PLAN: 63 year old male with past medical history of HTN, HLD, GERD and Depression presented with sudden intermittent episodes of chest pain that started at 4pm on day of admission. Patient reported experiencing sudden onset 5-6/10 chest pressure right after work while driving home, that was worsened with deep breathing. This lasted for a few minutes and has recurred about 5 more times before he came to the ED. Patient denied any SOB, palpitations, headache, dizziness. His blood pressure was noted to be elevated and he was prescribed Chlorthalidone 12.5mg for which he took at around noon day of admission. Of note , patient reported having nuclear stress test done about 10 years ago because he was having "palpitations", but could not remember the power marketer or the center where he did the test. And since then, has not had any palpitations, chest pain or SOB, until today. Patient denies any fever, chills, headache, dizziness, nausea, vomiting, abdominal pain, diarrhea, urinary symptoms. Neurology consulted due to concern for episode of speech disturbance and confusion. During my evaluation, patient without deficits, speech seems intact , knows location, date, name of president. CT head completed and no acute changes. Carotid showed small to moderate plaques, there was suggestion of evaluating further with CTA or MRA. MRA head and neck completed and reviewed in detail. Discussed in detail, atheromatous changes on L with minimal stenosis, no dissection, anuerysm, or occlusion. Remains on anti-HTN medications, on ASA. Planned for discharge. Episode possibly resolved with BP control, possibly hypertensive urgency. Monitor blood pressure, maintain normotensive range. Goal <140/90 for now, <130/80 as outpatient. Cardiology follow up. On ASA and statin. Neurologically at baseline.
== END 2018-11-06 10:21 | disposition home or self-care (01) ==
LOC: JER 17:29 → JERBED 19:51 → J4W 11-04 19:08
PROVIDERS: ADMIT Internal Medicine; ATTEND Internal Medicine
DX: R07.1 Chest pain on breathing (principal); R07.81 Pleurodynia; R07.89 Other chest pain; I16.0 Hypertensive urgency; E78.5 Hyperlipidemia, unspecified; I67.4 Hypertensive encephalopathy; K21.9 Gastro-esophageal reflux disease without esophagitis; F32.9 Major depressive disorder, single episode, unspecified; R47.81 Slurred speech
CPT/HCPCS: 36415; 70450-TC; 70544-TC; 70547-TC; 71046-TC-FY; 80048; 80061; 82607; 82746; 83036; 83721; 83735; 84100; 84443; 84484; 85025; 85379; 93005; 93010; 93306-TC; 93880-TC; 99284-25; G0378; J0735

== ENCOUNTER 2018-11-07 18:18 | Emergency (ER) | payer BC ==
[2018-11-07 18:36] VITALS: TEMP 98.2; BMI 24.6
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
--- NOTE | 2018-11-07 19:40 | PDOC ---
Attending Attestation - HPI HPI: 11/07/18 20:50 The patient is a 60-year-old male with a past medical history significant for HTN (on amlodipine 5 mg and HCTZ 25mg, took medication in the morning) and HLD presents to the emergency department with elevated blood pressure. The patient reports he checked his blood pressure this afternoon was noted to be elevated to 140, 150 and 160 systolic. The patient reports he went to [facility] to talk to the pharmacist to increase the dose of BP medication. At the place, he checked his BP, which was noted to be 209/90. The patient wanted to be evaluated. The patient reports associated symptoms of head pounding. Denies leg swelling. Allergies: NKDA PCP: Miguel Melvin MD. - Physicial Exam PE: 11/07/18 20:50 GENERAL: Awake, alert, and fully oriented, in no acute distress HEAD: No signs of trauma EYES: PERRLA, EOMI, sclera anicteric, conjunctiva clear ENT: Auricles normal inspection, hearing grossly normal, nares patent, oropharynx clear without exudates. Moist mucosa NECK: Normal ROM, supple, no lymphadenopathy, JVD, or masses LUNGS: Breath sounds equal, clear to auscultation bilaterally. No wheezes, and no crackles HEART: Regular rate and rhythm, normal S1 and S2, no murmurs, rubs or gallops ABDOMEN: Soft, nontender, normoactive bowel sounds. No guarding, no rebound. No masses EXTREMITIES: Normal range of motion, no edema. No clubbing or cyanosis. No cords, erythema, or tenderness NEUROLOGICAL: Cranial nerves II through XII grossly intact. Normal speech, normal gait SKIN: Warm, Dry, normal turgor, no rashes or lesions noted. - Medical Decision Making 11/07/18 20:50 Documentation prepared by Zandra Delacruz, acting as medical chief technician for Louann Burns MD. <Zandra Delacruz - Last Filed: 11/07/18 20:50> - Resident Resident Name: Burt Christopher - ED Attending Attestation I have performed the following: I have examined & evaluated the patient, The case was reviewed & discussed with the resident, I agree w/resident's findings & plan - Medical Decision Making 11/08/18 20:56 Pt has normal exam and normal EKH - unachanged from pervious incomplete RBBB. 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 <Louann Burns - Last Filed: 11/08/18 20:57>
[2018-11-07] MEDS ORDERED: amLODIPine BESYLATE 5 MG TABLET (FP) PO ONE (19:49)
[2018-11-07] MEDS ORDERED: amLODIPine BESYLATE 5 MG TABLET (FP) ONE (20:11)
[2018-11-07] MEDS ORDERED: VALSARTAN 40 MG TABLET (FP) PO ONE (20:31)
[2018-11-07] MEDS ORDERED: VALSARTAN 80 MG TABLET (UD) ONE (20:38)
[2018-11-07 21:17] VITALS: BP 166/79; PULSE 73
--- NOTE | 2018-11-10 13:51 | EKG ---
Test Reason : Blood Pressure : / mmHG Vent. Rate : 072 BPM Atrial Rate : 072 BPM P-R Int : 134 ms QRS Dur : 106 ms QT Int : 406 ms P-R-T Axes : 043 -20 009 degrees QTc Int : 444 ms NORMAL SINUS RHYTHM INCOMPLETE RIGHT BUNDLE BRANCH BLOCK BORDERLINE ECG WHEN COMPARED WITH ECG OF 03-NOV-2018 17:38, NO SIGNIFICANT CHANGE WAS FOUND Confirmed by MD Austin, Kobe ([id number]) on 11/10/2018 1:51:38 PM Referred By: Confirmed By:Kobe Avila MD
== END 2018-11-07 21:17 | disposition home or self-care (01) ==
LOC: JER 18:18
DX: I10 Essential (primary) hypertension (principal); E78.5 Hyperlipidemia, unspecified; K21.9 Gastro-esophageal reflux disease without esophagitis; F32.9 Major depressive disorder, single episode, unspecified; Z79.82 Long term (current) use of aspirin
CPT/HCPCS: 71045-TC-FY; 93005; 93010; 99282-25

== ENCOUNTER 2020-10-31 16:47 | Inpatient (IN) | payer BC ==
[2020-10-31] MEDS ORDERED: DEXAMETHASONE SOD PHOSPHATE 20 MG/5 ML VIAL IVPB ONE (18:01)
[2020-10-31] MEDS ORDERED: SODIUM CHLORIDE 500 ML IV STA (18:01)
[2020-10-31 18:50] LABS: BASO % 0.3 % (0-2.0); EOS % 0.1 % (0-4.5); HEMATOCRIT 42.7 % (35.4-49); HEMOGLOBIN 14.4 GM/dL (11.7-16.9); LYMPH % 8.7 % (8-40); MCH 30.4 pg (25.7-33.7); MCHC 33.7 g/dl (32.0-35.9); MEAN CELL VOLUME 90.3 fl (80-96); MEAN PLT VOLUME 9.3 fl (7.5-11.1); MONO % 5.2 % (3.8-10.2); NEUT % 85.7 % (42.8-82.8); PLATELET COUNT 125 K/MM3 (134-434); RBC 4.73 M/mm3 (4.00-5.60); VENOUS O2 SATURATION 50.4 % (70-80); VENOUS PCO2 42.5 mmHg (38-52); VENOUS PH 7.389 (7.310-7.410); WHITE BLOOD COUNT 5.2 K/mm3 (4.0-10.0)
[2020-10-31] MEDS ORDERED: DEXAMETHASONE SOD PHOSPHATE 4 MG/1 ML VIAL ONE (18:50)
[2020-10-31 19:00] LABS: INR 0.96 (0.83-1.09); PROTHROMBIN TIME (PATIENT) 11.6 SEC (9.7-13.0)
[2020-10-31 19:03] LABS: ACTIVATED PTT 33.8 SECONDS (25.2-36.5)
[2020-10-31 19:13] LABS: POTASSIUM 3.8 mmol/L (3.5-5.1)
[2020-10-31 19:18] LABS: CALCIUM 8.3 mg/dL (8.5-10.1)
[2020-10-31 19:19] LABS: ALBUMIN 3.2 g/dl (3.4-5.0); BLOOD UREA NITROGEN 14.6 mg/dL (7-18)
[2020-10-31 19:22] LABS: BILIRUBIN,DIRECT 0.2 mg/dL (0.0-0.2)
[2020-10-31 19:23] LABS: BILIRUBIN,TOTAL 0.4 mg/dL (0.2-1)
[2020-10-31 19:24] LABS: TOT PROT 6.7 g/dl (6.4-8.2)
[2020-10-31] MEDS ORDERED: CEFTRIAXONE 1,000 MG in DEXTROSE 5%-WATER - 50 ML IVPB ONE (19:51)
[2020-10-31] MEDS ORDERED: AZITHROMYCIN 250 MG TABLET PO ONE (19:51)
[2020-10-31] MEDS ORDERED: CEFTRIAXONE 1 GM/50 ML BAG ONE (20:03)
[2020-10-31] MEDS ORDERED: AZITHROMYCIN IVPB 500 MG/250 ML BAG IVPB ONE (20:03)
[2020-10-31] MEDS ORDERED: AZITHROMYCIN 250 MG TABLET ONE (20:12)
[2020-10-31 21:00] LABS: URINE APPEARANCE CLEAR; URINE BILIRUBIN NEGATIVE (NEGATIVE); URINE COLOR YELLOW; URINE GLUCOSE (UA) NEGATIVE (NEGATIVE); URINE KETONE 1+ (NEGATIVE); URINE LEUK ESTERASE NEGATIVE (NEGATIVE); URINE NITRITE NEGATIVE (NEGATIVE); URINE PROTEIN TRACE (NEGATIVE)
[2020-10-31] MEDS ORDERED: guaiFENesin 200 MG/10 ML 10 ML UNIT-DOSE CUPS PO PRN (21:01)
[2020-10-31] MEDS ORDERED: ACETAMINOPHEN 325 MG TABLET (FP) ONE (21:32)
[2020-10-31] MEDS: ACETAMINOPHEN 325 MG TABLET (FP) PO PRN (21:34)
[2020-10-31] MEDS ORDERED: ASCORBIC ACID 500 MG TABLET (FP) ONE (22:17)
[2020-10-31] MEDS: ASCORBIC ACID 250 MG TABLET (FP) PO SCH (22:29)
[2020-10-31] MEDS ORDERED: MAG HYDROX/AL HYDROX/SIMETH 30 ML UNIT-DOSE CUP PO PRN (22:41)
[2020-11-01 02:25] VITALS: BMI 24.6
[2020-11-01] MEDS ORDERED: SODIUM CHLORIDE 1,000 ML IV SCH (08:30)
[2020-11-01] MEDS ORDERED: DEXTROSE 5%-WATER - 50 ML IVPB ONE (09:07)
[2020-11-01] MEDS ORDERED: PT OWN MED DRAWER 7, Y5N ONE (09:07)
[2020-11-01] MEDS ORDERED: cefTRIAXone SODIUM 1 GM VIAL ONE (09:07)
[2020-11-01 09:22] LABS: BASO % 0.1 % (0-2.0); HEMOGLOBIN 13.9 GM/dL (11.7-16.9); LYMPH % 11.8 % (8-40); MCH 30.2 pg (25.7-33.7); MCHC 33.8 g/dl (32.0-35.9); MEAN CELL VOLUME 89.6 fl (80-96); MEAN PLT VOLUME 9.3 fl (7.5-11.1); NEUT % 82.1 % (42.8-82.8); PLATELET COUNT 119 K/MM3 (134-434); RBC 4.58 M/mm3 (4.00-5.60); WHITE BLOOD COUNT 3.5 K/mm3 (4.0-10.0)
[2020-11-01] MEDS: ENOXAPARIN NA (PORCINE) 40 MG/0.4 ML DISP.SYRIN SQ SCH (09:25)
[2020-11-01] MEDS: CEFTRIAXONE 1 GM in DEXTROSE 5%-WATER - 50 ML IVPB SCH (09:25)
[2020-11-01] MEDS: ASCORBIC ACID 250 MG TABLET (FP) PO SCH ×2 (09:26→21:37)
[2020-11-01] MEDS: ZINC SULFATE 220 MG CAPSULE (FP) PO SCH (09:27)
[2020-11-01] MEDS: amLODIPine BESYLATE 5 MG TABLET (FP) PO SCH (09:27)
[2020-11-01] MEDS: DEXAMETHASONE SOD PHOSPHATE 4 MG/1 ML VIAL IVPUSH SCH (09:28)
[2020-11-01] MEDS: CHOLECALCIFEROL (VIT D3) 1,000 UNIT (25 MCG) TABLET PO SCH (09:28)
[2020-11-01 09:42] LABS: POTASSIUM 4.5 mmol/L (3.5-5.1)
[2020-11-01] MEDS ORDERED: FAMOTIDINE 20 MG TABLET PO SCH (10:00)
[2020-11-01 10:01] LABS: BLOOD UREA NITROGEN 12.2 mg/dL (7-18); CALCIUM 8.2 mg/dL (8.5-10.1)
[2020-11-01 10:02] LABS: MAGNESIUM 2.2 mg/dL (1.8-2.4)
[2020-11-01 10:05] LABS: CREATININE 0.8 mg/dL (0.55-1.3); PHOSPHOROUS 2.6 mg/dL (2.5-4.9)
[2020-11-01 10:07] LABS: BILIRUBIN,TOTAL 0.3 mg/dL (0.2-1); TOT PROT 6.3 g/dl (6.4-8.2)
[2020-11-01] MEDS ORDERED: REMDESIVIR 200 MG in SODIUM CHLORIDE 210 ML IVPB ONE (12:00)
[2020-11-01] MEDS: AZITHROMYCIN IVPB 250 MG in DEXTROSE 5%-WATER - 250 ML IVPB SCH (12:01)
[2020-11-01] MEDS: ALBUTEROL SO4 HFA INHALER IH SCH ×3 (12:01→21:39)
[2020-11-01] MEDS: BUDESONIDE/FORMETEROL FUMARATE 160/4.5 mcg INHALER IH SCH ×2 (12:01→21:39)
[2020-11-01] MEDS ORDERED: guaiFENesin/CODEINE 5 ML UNIT-DOSE CUPS PO PRN (12:29)
[2020-11-01] MEDS: ACETAMINOPHEN 325 MG TABLET (FP) PO PRN (16:21)
[2020-11-01] MEDS: MELATONIN 5 MG TABLETS PO SCH ×2 (19:44→21:35)
[2020-11-01] MEDS: FAMOTIDINE 20 MG TABLET PO SCH (21:35)
[2020-11-02 08:27] LABS: HEMATOCRIT 41.3 % (35.4-49); HEMOGLOBIN 14.1 GM/dL (11.7-16.9); MCH 30.7 pg (25.7-33.7); MCHC 34.1 g/dl (32.0-35.9); MEAN PLT VOLUME 9.2 fl (7.5-11.1); PLATELET COUNT 120 K/MM3 (134-434); RBC 4.58 M/mm3 (4.00-5.60); RDW 14.7 % (11.9-15.9); WHITE BLOOD COUNT 7.9 K/mm3 (4.0-10.0)
[2020-11-02 08:43] LABS: POTASSIUM 4.3 mmol/L (3.5-5.1)
[2020-11-02 08:48] LABS: CALCIUM 8.6 mg/dL (8.5-10.1)
[2020-11-02 08:49] LABS: ALBUMIN 3.1 g/dl (3.4-5.0); BLOOD UREA NITROGEN 19.6 mg/dL (7-18)
[2020-11-02 08:53] LABS: BILIRUBIN,TOTAL 0.4 mg/dL (0.2-1); TOT PROT 6.5 g/dl (6.4-8.2)
[2020-11-02] MEDS ORDERED: PT OWN MED DRAWER 7, Y5N ONE ×2 (09:33→19:50)
[2020-11-02] MEDS ORDERED: cefTRIAXone SODIUM 1 GM VIAL ONE (09:33)
[2020-11-02] MEDS ORDERED: DEXTROSE 5%-WATER - 50 ML IVPB ONE (09:33)
[2020-11-02] MEDS: ZINC SULFATE 220 MG CAPSULE (FP) PO SCH (09:36)
[2020-11-02] MEDS: ENOXAPARIN NA (PORCINE) 40 MG/0.4 ML DISP.SYRIN SQ SCH (09:36)
[2020-11-02] MEDS: FAMOTIDINE 20 MG TABLET PO SCH ×2 (09:36→21:19)
[2020-11-02] MEDS: amLODIPine BESYLATE 5 MG TABLET (FP) PO SCH (09:36)
[2020-11-02] MEDS: DEXAMETHASONE SOD PHOSPHATE 4 MG/1 ML VIAL IVPUSH SCH (09:37)
[2020-11-02] MEDS: ALBUTEROL SO4 HFA INHALER IH SCH ×4 (09:37→20:25)
[2020-11-02] MEDS: CEFTRIAXONE 1 GM in DEXTROSE 5%-WATER - 50 ML IVPB SCH (09:37)
[2020-11-02] MEDS: ASCORBIC ACID 250 MG TABLET (FP) PO SCH ×2 (09:38→21:20)
[2020-11-02] MEDS: CHOLECALCIFEROL (VIT D3) 1,000 UNIT (25 MCG) TABLET PO SCH (09:38)
[2020-11-02] MEDS: BUDESONIDE/FORMETEROL FUMARATE 160/4.5 mcg INHALER IH SCH ×2 (09:38→21:24)
[2020-11-02] MEDS: AZITHROMYCIN IVPB 250 MG in DEXTROSE 5%-WATER - 250 ML IVPB SCH (10:52)
[2020-11-02] MEDS: REMDESIVIR 100 MG in SODIUM CHLORIDE 230 ML IVPB SCH (11:52)
[2020-11-02] MEDS: ENOXAPARIN NA (PORCINE) 80 MG/0.8 ML DISP.SYRIN SQ SCH (21:19)
[2020-11-02] MEDS: MELATONIN 5 MG TABLETS PO SCH (21:19)
[2020-11-03 07:50] LABS: HEMATOCRIT 38.4 % (35.4-49); MCH 30.2 pg (25.7-33.7); MCHC 33.8 g/dl (32.0-35.9); MEAN CELL VOLUME 89.2 fl (80-96); MEAN PLT VOLUME 9.5 fl (7.5-11.1); PLATELET COUNT 141 K/MM3 (134-434); RDW 14.8 % (11.9-15.9); WHITE BLOOD COUNT 8.6 K/mm3 (4.0-10.0)
[2020-11-03 08:08] LABS: POTASSIUM 4.4 mmol/L (3.5-5.1)
[2020-11-03 08:29] LABS: ALBUMIN 2.8 g/dl (3.4-5.0); BILIRUBIN,TOTAL 0.5 mg/dL (0.2-1); BLOOD UREA NITROGEN 21.3 mg/dL (7-18); CALCIUM 8.4 mg/dL (8.5-10.1); CREATININE 0.8 mg/dL (0.55-1.3); TOT PROT 6.3 g/dl (6.4-8.2)
[2020-11-03] MEDS ORDERED: DEXTROSE 5%-WATER - 50 ML IVPB ONE (10:21)
[2020-11-03] MEDS ORDERED: cefTRIAXone SODIUM 1 GM VIAL ONE (10:21)
[2020-11-03] MEDS: DEXAMETHASONE SOD PHOSPHATE 4 MG/1 ML VIAL IVPUSH SCH (10:25)
[2020-11-03] MEDS: AZITHROMYCIN IVPB 250 MG in DEXTROSE 5%-WATER - 250 ML IVPB SCH (10:26)
[2020-11-03] MEDS: CEFTRIAXONE 1 GM in DEXTROSE 5%-WATER - 50 ML IVPB SCH (10:26)
[2020-11-03] MEDS: amLODIPine BESYLATE 5 MG TABLET (FP) PO SCH (10:27)
[2020-11-03] MEDS: ALBUTEROL SO4 HFA INHALER IH SCH ×4 (10:27→21:34)
[2020-11-03] MEDS: ZINC SULFATE 220 MG CAPSULE (FP) PO SCH (10:27)
[2020-11-03] MEDS: BUDESONIDE/FORMETEROL FUMARATE 160/4.5 mcg INHALER IH SCH ×2 (10:27→21:34)
[2020-11-03] MEDS: FAMOTIDINE 20 MG TABLET PO SCH ×2 (10:27→21:34)
[2020-11-03] MEDS: ENOXAPARIN NA (PORCINE) 80 MG/0.8 ML DISP.SYRIN SQ SCH ×2 (10:27→21:34)
[2020-11-03] MEDS: ASCORBIC ACID 250 MG TABLET (FP) PO SCH ×2 (10:28→21:35)
[2020-11-03] MEDS: guaiFENesin/CODEINE 10 ML UNIT-DOSE CUPS PO PRN ×2 (10:28→21:43)
[2020-11-03] MEDS: CHOLECALCIFEROL (VIT D3) 1,000 UNIT (25 MCG) TABLET PO SCH (10:28)
[2020-11-03] MEDS: REMDESIVIR 100 MG in SODIUM CHLORIDE 230 ML IVPB SCH (12:31)
[2020-11-03] MEDS ORDERED: PT OWN MED DRAWER 7, Y5N ONE (12:36)
[2020-11-03] MEDS: MELATONIN 5 MG TABLETS PO SCH (21:34)
[2020-11-04] MEDS ORDERED: cefTRIAXone SODIUM 1 GM VIAL ONE (09:46)
[2020-11-04] MEDS ORDERED: DEXTROSE 5%-WATER - 50 ML IVPB ONE (09:46)
[2020-11-04 10:01] LABS: HEMATOCRIT 40.9 % (35.4-49); HEMOGLOBIN 13.7 GM/dL (11.7-16.9); MCH 30.2 pg (25.7-33.7); MCHC 33.6 g/dl (32.0-35.9); MEAN PLT VOLUME 9.6 fl (7.5-11.1); PLATELET COUNT 199 K/MM3 (134-434); RBC 4.55 M/mm3 (4.00-5.60); RDW 14.8 % (11.9-15.9); WHITE BLOOD COUNT 12.1 K/mm3 (4.0-10.0)
[2020-11-04] MEDS: DEXAMETHASONE SOD PHOSPHATE 4 MG/1 ML VIAL IVPUSH SCH (10:06)
[2020-11-04] MEDS: amLODIPine BESYLATE 5 MG TABLET (FP) PO SCH (10:06)
[2020-11-04] MEDS: ALBUTEROL SO4 HFA INHALER IH SCH ×4 (10:06→22:17)
[2020-11-04] MEDS: ENOXAPARIN NA (PORCINE) 80 MG/0.8 ML DISP.SYRIN SQ SCH (10:06)
[2020-11-04] MEDS: ZINC SULFATE 220 MG CAPSULE (FP) PO SCH (10:06)
[2020-11-04] MEDS: BUDESONIDE/FORMETEROL FUMARATE 160/4.5 mcg INHALER IH SCH ×2 (10:07→22:17)
[2020-11-04] MEDS: AZITHROMYCIN IVPB 250 MG in DEXTROSE 5%-WATER - 250 ML IVPB SCH (10:07)
[2020-11-04] MEDS: CHOLECALCIFEROL (VIT D3) 1,000 UNIT (25 MCG) TABLET PO SCH (10:07)
[2020-11-04] MEDS: FAMOTIDINE 20 MG TABLET PO SCH ×2 (10:07→22:15)
[2020-11-04] MEDS: ASCORBIC ACID 250 MG TABLET (FP) PO SCH ×2 (10:07→22:55)
[2020-11-04 10:36] LABS: POTASSIUM 4.7 mmol/L (3.5-5.1)
[2020-11-04 10:39] LABS: ALBUMIN 3.1 g/dl (3.4-5.0)
[2020-11-04 10:42] LABS: CREATININE 0.9 mg/dL (0.55-1.3)
[2020-11-04 10:43] LABS: BILIRUBIN,TOTAL 0.6 mg/dL (0.2-1)
[2020-11-04 10:44] LABS: TOT PROT 6.7 g/dl (6.4-8.2)
[2020-11-04] MEDS: REMDESIVIR 100 MG in SODIUM CHLORIDE 230 ML IVPB SCH (12:17)
[2020-11-04] MEDS: guaiFENesin/CODEINE 10 ML UNIT-DOSE CUPS PO PRN (18:02)
[2020-11-04] MEDS ORDERED: PT OWN MED DRAWER 7, Y5N ONE (21:00)
[2020-11-04] MEDS: MELATONIN 5 MG TABLETS PO SCH (22:55)
[2020-11-05] MEDS: ALBUTEROL SO4 HFA INHALER IH SCH ×4 (08:30→21:51)
[2020-11-05] MEDS: ENOXAPARIN NA (PORCINE) 40 MG/0.4 ML DISP.SYRIN SQ SCH (09:34)
[2020-11-05] MEDS: DEXAMETHASONE SOD PHOSPHATE 4 MG/1 ML VIAL IVPUSH SCH (09:34)
[2020-11-05] MEDS: FAMOTIDINE 20 MG TABLET PO SCH ×2 (09:35→21:47)
[2020-11-05] MEDS: ZINC SULFATE 220 MG CAPSULE (FP) PO SCH (09:35)
[2020-11-05] MEDS: amLODIPine BESYLATE 5 MG TABLET (FP) PO SCH (09:35)
[2020-11-05] MEDS: BUDESONIDE/FORMETEROL FUMARATE 160/4.5 mcg INHALER IH SCH ×2 (09:35→21:51)
[2020-11-05] MEDS: CHOLECALCIFEROL (VIT D3) 1,000 UNIT (25 MCG) TABLET PO SCH (09:35)
[2020-11-05] MEDS: ASCORBIC ACID 250 MG TABLET (FP) PO SCH ×2 (09:35→23:00)
[2020-11-05 09:46] LABS: HEMATOCRIT 41.2 % (35.4-49); HEMOGLOBIN 13.8 GM/dL (11.7-16.9); MCH 30.1 pg (25.7-33.7); MCHC 33.4 g/dl (32.0-35.9); MEAN PLT VOLUME 8.9 fl (7.5-11.1); PLATELET COUNT 234 K/MM3 (134-434); RBC 4.58 M/mm3 (4.00-5.60); RDW 15.1 % (11.9-15.9); WHITE BLOOD COUNT 11.4 K/mm3 (4.0-10.0)
[2020-11-05 09:59] LABS: POTASSIUM 4.6 mmol/L (3.5-5.1)
[2020-11-05 10:10] LABS: CALCIUM 8.9 mg/dL (8.5-10.1)
[2020-11-05 10:11] LABS: ALBUMIN 3.1 g/dl (3.4-5.0); BLOOD UREA NITROGEN 20.1 mg/dL (7-18)
[2020-11-05 10:14] LABS: CREATININE 0.9 mg/dL (0.55-1.3)
[2020-11-05 10:15] LABS: BILIRUBIN,TOTAL 0.9 mg/dL (0.2-1)
[2020-11-05 10:16] LABS: TOT PROT 6.6 g/dl (6.4-8.2)
[2020-11-05] MEDS: REMDESIVIR 100 MG in SODIUM CHLORIDE 230 ML IVPB SCH (12:23)
[2020-11-05] MEDS: QUEtiapine FUMARATE 25 MG TABLET PO SCH (21:45)
[2020-11-05] MEDS: ATORVASTATIN CA 20 MG TABLET (FP) PO SCH (21:46)
[2020-11-05] MEDS: MELATONIN 5 MG TABLETS PO SCH (21:46)
[2020-11-05] MEDS ORDERED: QUEtiapine FUMARATE 25 MG TABLET PO SCH (22:00)
[2020-11-06 08:47] LABS: BASO % 0.1 % (0-2.0); HEMATOCRIT 39.7 % (35.4-49); HEMOGLOBIN 13.3 GM/dL (11.7-16.9); LYMPH % 7.4 % (8-40); MCH 29.8 pg (25.7-33.7); MCHC 33.7 g/dl (32.0-35.9); MEAN CELL VOLUME 88.6 fl (80-96); MEAN PLT VOLUME 8.5 fl (7.5-11.1); MONO % 4.6 % (3.8-10.2); NEUT % 87.9 % (42.8-82.8); PLATELET COUNT 253 K/MM3 (134-434); RBC 4.48 M/mm3 (4.00-5.60); RDW 14.8 % (11.9-15.9); WHITE BLOOD COUNT 12.1 K/mm3 (4.0-10.0)
[2020-11-06] MEDS: ALBUTEROL SO4 HFA INHALER IH SCH ×4 (09:05→21:02)
[2020-11-06 09:07] LABS: POTASSIUM 4.7 mmol/L (3.5-5.1)
[2020-11-06 09:13] LABS: ALBUMIN 2.8 g/dl (3.4-5.0); CALCIUM 8.3 mg/dL (8.5-10.1)
[2020-11-06 09:14] LABS: BLOOD UREA NITROGEN 23.5 mg/dL (7-18); MAGNESIUM 2.4 mg/dL (1.8-2.4)
[2020-11-06 09:17] LABS: CREATININE 0.8 mg/dL (0.55-1.3); PHOSPHOROUS 3.1 mg/dL (2.5-4.9)
[2020-11-06 09:18] LABS: TOT PROT 5.9 g/dl (6.4-8.2)
[2020-11-06] MEDS: FAMOTIDINE 20 MG TABLET PO SCH ×2 (11:06→21:01)
[2020-11-06] MEDS: ZINC SULFATE 220 MG CAPSULE (FP) PO SCH (11:06)
[2020-11-06] MEDS: ENOXAPARIN NA (PORCINE) 40 MG/0.4 ML DISP.SYRIN SQ SCH (11:06)
[2020-11-06 11:07] LABS: ANISOCYTOSIS 0; MACROCYTOSIS 0; PLATELET ESTIMATE NORMAL
[2020-11-06] MEDS: ASCORBIC ACID 250 MG TABLET (FP) PO SCH ×2 (11:07→21:01)
[2020-11-06] MEDS: DEXAMETHASONE SOD PHOSPHATE 4 MG/1 ML VIAL IVPUSH SCH (11:07)
[2020-11-06] MEDS: BUDESONIDE/FORMETEROL FUMARATE 160/4.5 mcg INHALER IH SCH ×2 (11:07→21:02)
[2020-11-06] MEDS: amLODIPine BESYLATE 5 MG TABLET (FP) PO SCH (11:07)
[2020-11-06] MEDS: CHOLECALCIFEROL (VIT D3) 1,000 UNIT (25 MCG) TABLET PO SCH (11:08)
[2020-11-06] MEDS: MELATONIN 5 MG TABLETS PO SCH (21:01)
[2020-11-06] MEDS: QUEtiapine FUMARATE 25 MG TABLET PO SCH (21:01)
[2020-11-06] MEDS: ATORVASTATIN CA 20 MG TABLET (FP) PO SCH (21:01)
[2020-11-06] MEDS: ENOXAPARIN NA (PORCINE) 80 MG/0.8 ML DISP.SYRIN SQ SCH (21:02)
[2020-11-07 08:39] LABS: BASO % 0.1 % (0-2.0); HEMATOCRIT 38.6 % (35.4-49); HEMOGLOBIN 13.3 GM/dL (11.7-16.9); LYMPH % 6.8 % (8-40); MCH 30.4 pg (25.7-33.7); MCHC 34.6 g/dl (32.0-35.9); MEAN CELL VOLUME 88.1 fl (80-96); MEAN PLT VOLUME 8.3 fl (7.5-11.1); MONO % 3.6 % (3.8-10.2); NEUT % 89.5 % (42.8-82.8); PLATELET COUNT 282 K/MM3 (134-434); RBC 4.38 M/mm3 (4.00-5.60)
[2020-11-07 08:52] LABS: POTASSIUM 4.6 mmol/L (3.5-5.1)
[2020-11-07 08:57] LABS: ALBUMIN 2.7 g/dl (3.4-5.0); CALCIUM 8.4 mg/dL (8.5-10.1)
[2020-11-07 08:58] LABS: BLOOD UREA NITROGEN 26.6 mg/dL (7-18); MAGNESIUM 2.3 mg/dL (1.8-2.4)
[2020-11-07 09:01] LABS: BILIRUBIN,TOTAL 0.7 mg/dL (0.2-1); CREATININE 0.7 mg/dL (0.55-1.3); PHOSPHOROUS 3.3 mg/dL (2.5-4.9)
[2020-11-07] MEDS: ALBUTEROL SO4 HFA INHALER IH SCH ×4 (09:58→21:25)
[2020-11-07] MEDS: ZINC SULFATE 220 MG CAPSULE (FP) PO SCH (10:51)
[2020-11-07] MEDS: CHOLECALCIFEROL (VIT D3) 1,000 UNIT (25 MCG) TABLET PO SCH (10:51)
[2020-11-07] MEDS: DEXAMETHASONE SOD PHOSPHATE 4 MG/1 ML VIAL IVPUSH SCH (10:51)
[2020-11-07] MEDS: ENOXAPARIN NA (PORCINE) 80 MG/0.8 ML DISP.SYRIN SQ SCH ×2 (10:52→21:24)
[2020-11-07] MEDS: ACETAMINOPHEN 325 MG TABLET (FP) PO PRN ×2 (10:53→21:23)
[2020-11-07] MEDS: FAMOTIDINE 20 MG TABLET PO SCH ×2 (10:53→21:23)
[2020-11-07] MEDS: amLODIPine BESYLATE 5 MG TABLET (FP) PO SCH (10:53)
[2020-11-07] MEDS: SODIUM CHLORIDE NASAL SPRAY 44 ML BOTTLE NS PRN (10:54)
[2020-11-07] MEDS: BUDESONIDE/FORMETEROL FUMARATE 160/4.5 mcg INHALER IH SCH ×2 (10:54→21:24)
[2020-11-07] MEDS: ASCORBIC ACID 250 MG TABLET (FP) PO SCH ×2 (10:55→21:23)
[2020-11-07 11:39] LABS: ANISOCYTOSIS 0; MACROCYTOSIS 0; PLATELET ESTIMATE NORMAL
[2020-11-07] MEDS ORDERED: PT OWN MED DRAWER 7, Y5N ONE (20:28)
[2020-11-07] MEDS: MELATONIN 5 MG TABLETS PO SCH (21:23)
[2020-11-07] MEDS: QUEtiapine FUMARATE 25 MG TABLET PO SCH (21:23)
[2020-11-07] MEDS: guaiFENesin/CODEINE 10 ML UNIT-DOSE CUPS PO PRN (21:24)
[2020-11-08 09:10] LABS: BASO % 0.2 % (0-2.0); EOS % 0.1 % (0-4.5); HEMATOCRIT 39.6 % (35.4-49); HEMOGLOBIN 13.2 GM/dL (11.7-16.9); LYMPH % 4.5 % (8-40); MCH 30.1 pg (25.7-33.7); MCHC 33.4 g/dl (32.0-35.9); MEAN PLT VOLUME 8.8 fl (7.5-11.1); MONO % 2.2 % (3.8-10.2); PLATELET COUNT 306 K/MM3 (134-434); RDW 14.8 % (11.9-15.9); WHITE BLOOD COUNT 14.5 K/mm3 (4.0-10.0)
[2020-11-08] MEDS ORDERED: PT OWN MED DRAWER 7, Y5N ONE (09:29)
[2020-11-08] MEDS: DEXAMETHASONE SOD PHOSPHATE 4 MG/1 ML VIAL IVPUSH SCH (09:34)
[2020-11-08] MEDS: ENOXAPARIN NA (PORCINE) 80 MG/0.8 ML DISP.SYRIN SQ SCH ×2 (09:34→22:04)
[2020-11-08] MEDS: ALBUTEROL SO4 HFA INHALER IH SCH ×4 (09:34→22:04)
[2020-11-08] MEDS: amLODIPine BESYLATE 5 MG TABLET (FP) PO SCH (09:34)
[2020-11-08] MEDS: FAMOTIDINE 20 MG TABLET PO SCH ×2 (09:35→22:04)
[2020-11-08] MEDS: BUDESONIDE/FORMETEROL FUMARATE 160/4.5 mcg INHALER IH SCH ×2 (09:35→22:05)
[2020-11-08] MEDS: ZINC SULFATE 220 MG CAPSULE (FP) PO SCH (09:35)
[2020-11-08] MEDS: ASCORBIC ACID 250 MG TABLET (FP) PO SCH ×2 (09:35→22:04)
[2020-11-08] MEDS: CHOLECALCIFEROL (VIT D3) 1,000 UNIT (25 MCG) TABLET PO SCH (09:35)
[2020-11-08 09:47] LABS: POTASSIUM 4.9 mmol/L (3.5-5.1)
[2020-11-08 10:23] LABS: CALCIUM 8.2 mg/dL (8.5-10.1)
[2020-11-08 10:24] LABS: BLOOD UREA NITROGEN 23.5 mg/dL (7-18)
[2020-11-08 10:25] LABS: ALBUMIN 2.5 g/dl (3.4-5.0); MAGNESIUM 2.2 mg/dL (1.8-2.4)
[2020-11-08 10:27] LABS: CREATININE 0.8 mg/dL (0.55-1.3); PHOSPHOROUS 3.6 mg/dL (2.5-4.9)
[2020-11-08 10:29] LABS: ANISOCYTOSIS 0; BILIRUBIN,TOTAL 0.7 mg/dL (0.2-1); MACROCYTOSIS 0; PLATELET ESTIMATE NORMAL; TOT PROT 5.8 g/dl (6.4-8.2)
[2020-11-08] MEDS: QUEtiapine FUMARATE 25 MG TABLET PO SCH (22:04)
[2020-11-08] MEDS: MELATONIN 5 MG TABLETS PO SCH (22:04)
[2020-11-09] MEDS: ALBUTEROL SO4 HFA INHALER IH SCH ×4 (08:45→21:02)
[2020-11-09 08:47] LABS: BASO % 0.1 % (0-2.0); EOS % 0.1 % (0-4.5); HEMATOCRIT 37.6 % (35.4-49); HEMOGLOBIN 12.8 GM/dL (11.7-16.9); LYMPH % 5.1 % (8-40); MCH 30.2 pg (25.7-33.7); MCHC 33.9 g/dl (32.0-35.9); MEAN CELL VOLUME 88.8 fl (80-96); MEAN PLT VOLUME 8.1 fl (7.5-11.1); MONO % 2.7 % (3.8-10.2); PLATELET COUNT 346 K/MM3 (134-434); RBC 4.23 M/mm3 (4.00-5.60); RDW 14.8 % (11.9-15.9)
[2020-11-09 09:04] LABS: POTASSIUM 4.6 mmol/L (3.5-5.1)
[2020-11-09 09:18] LABS: CALCIUM 8.4 mg/dL (8.5-10.1)
[2020-11-09 09:19] LABS: ALBUMIN 2.4 g/dl (3.4-5.0); BLOOD UREA NITROGEN 24.8 mg/dL (7-18); MAGNESIUM 2.2 mg/dL (1.8-2.4)
[2020-11-09 09:21] LABS: CREATININE 0.8 mg/dL (0.55-1.3); PHOSPHOROUS 3.5 mg/dL (2.5-4.9)
[2020-11-09 09:22] LABS: BILIRUBIN,TOTAL 0.8 mg/dL (0.2-1)
[2020-11-09 09:23] LABS: TOT PROT 5.6 g/dl (6.4-8.2)
[2020-11-09] MEDS: CHOLECALCIFEROL (VIT D3) 1,000 UNIT (25 MCG) TABLET PO SCH (09:54)
[2020-11-09] MEDS: ENOXAPARIN NA (PORCINE) 80 MG/0.8 ML DISP.SYRIN SQ SCH ×2 (09:54→21:04)
[2020-11-09] MEDS: guaiFENesin/CODEINE 10 ML UNIT-DOSE CUPS PO PRN ×2 (09:55→21:06)
[2020-11-09] MEDS: DEXAMETHASONE SOD PHOSPHATE 4 MG/1 ML VIAL IVPUSH SCH (09:55)
[2020-11-09] MEDS: FAMOTIDINE 20 MG TABLET PO SCH ×2 (09:55→21:04)
[2020-11-09] MEDS: ASCORBIC ACID 250 MG TABLET (FP) PO SCH ×2 (09:56→21:04)
[2020-11-09] MEDS: ZINC SULFATE 220 MG CAPSULE (FP) PO SCH (09:56)
[2020-11-09] MEDS: ACETAMINOPHEN 325 MG TABLET (FP) PO PRN (09:56)
[2020-11-09] MEDS: amLODIPine BESYLATE 5 MG TABLET (FP) PO SCH (09:56)
[2020-11-09] MEDS: BUDESONIDE/FORMETEROL FUMARATE 160/4.5 mcg INHALER IH SCH ×2 (09:59→21:02)
[2020-11-09 11:46] LABS: PLATELET ESTIMATE NORMAL
[2020-11-09] MEDS ORDERED: PT OWN MED DRAWER 7, Y5N ONE (20:32)
[2020-11-09] MEDS: MELATONIN 5 MG TABLETS PO SCH (21:04)
[2020-11-09] MEDS: QUEtiapine FUMARATE 25 MG TABLET PO SCH (21:04)
[2020-11-10 07:47] LABS: HEMOGLOBIN 12.8 GM/dL (11.7-16.9); MCH 30.3 pg (25.7-33.7); MCHC 34.6 g/dl (32.0-35.9); MEAN CELL VOLUME 87.6 fl (80-96); MEAN PLT VOLUME 8.3 fl (7.5-11.1); PLATELET COUNT 339 K/MM3 (134-434); RBC 4.23 M/mm3 (4.00-5.60); RDW 14.9 % (11.9-15.9)
[2020-11-10] MEDS: ALBUTEROL SO4 HFA INHALER IH SCH ×4 (08:12→21:33)
[2020-11-10 08:32] LABS: ALBUMIN 2.3 g/dl (3.4-5.0); BLOOD UREA NITROGEN 24.3 mg/dL (7-18)
[2020-11-10 08:35] LABS: CALCIUM 8.3 mg/dL (8.5-10.1); CREATININE 0.8 mg/dL (0.55-1.3)
[2020-11-10 08:39] LABS: TOT PROT 5.5 g/dl (6.4-8.2)
[2020-11-10 08:42] LABS: BILIRUBIN,TOTAL 0.8 mg/dL (0.2-1)
[2020-11-10] MEDS: ASCORBIC ACID 250 MG TABLET (FP) PO SCH ×2 (09:20→21:22)
[2020-11-10] MEDS: amLODIPine BESYLATE 5 MG TABLET (FP) PO SCH (09:20)
[2020-11-10] MEDS: CHOLECALCIFEROL (VIT D3) 1,000 UNIT (25 MCG) TABLET PO SCH (09:21)
[2020-11-10] MEDS: ZINC SULFATE 220 MG CAPSULE (FP) PO SCH (09:21)
[2020-11-10] MEDS: DEXAMETHASONE SOD PHOSPHATE 4 MG/1 ML VIAL IVPUSH SCH (09:21)
[2020-11-10] MEDS: FAMOTIDINE 20 MG TABLET PO SCH ×2 (09:21→21:24)
[2020-11-10] MEDS: ENOXAPARIN NA (PORCINE) 80 MG/0.8 ML DISP.SYRIN SQ SCH ×2 (09:21→21:24)
[2020-11-10] MEDS: BUDESONIDE/FORMETEROL FUMARATE 160/4.5 mcg INHALER IH SCH ×2 (09:22→21:32)
[2020-11-10] MEDS: SODIUM CHLORIDE NASAL SPRAY 44 ML BOTTLE NS PRN (09:49)
[2020-11-10] MEDS ORDERED: PT OWN MED DRAWER 7, Y5N ONE ×2 (10:24→20:29)
[2020-11-10] MEDS: QUEtiapine FUMARATE 25 MG TABLET PO SCH (21:23)
[2020-11-10] MEDS: MELATONIN 5 MG TABLETS PO SCH (21:23)
[2020-11-10] MEDS ORDERED: DEXAMETHASONE SOD PHOSPHATE 4 MG/1 ML VIAL IVPUSH ONE (22:00)
[2020-11-11] MEDS: ALBUTEROL SO4 HFA INHALER IH SCH ×4 (08:00→21:52)
[2020-11-11 08:29] LABS: HEMATOCRIT 37.3 % (35.4-49); HEMOGLOBIN 12.7 GM/dL (11.7-16.9); MCH 30.3 pg (25.7-33.7); MCHC 34.2 g/dl (32.0-35.9); MEAN CELL VOLUME 88.8 fl (80-96); MEAN PLT VOLUME 7.9 fl (7.5-11.1); PLATELET COUNT 341 K/MM3 (134-434); RBC 4.19 M/mm3 (4.00-5.60); RDW 14.9 % (11.9-15.9); WHITE BLOOD COUNT 14.4 K/mm3 (4.0-10.0)
[2020-11-11 08:42] LABS: POTASSIUM 4.8 mmol/L (3.5-5.1)
[2020-11-11 08:46] LABS: ALBUMIN 2.2 g/dl (3.4-5.0); CALCIUM 8.5 mg/dL (8.5-10.1)
[2020-11-11 08:47] LABS: BLOOD UREA NITROGEN 27.2 mg/dL (7-18)
[2020-11-11 08:51] LABS: BILIRUBIN,TOTAL 0.5 mg/dL (0.2-1); CREATININE 0.8 mg/dL (0.55-1.3)
[2020-11-11 09:06] LABS: TOT PROT 5.6 g/dl (6.4-8.2)
[2020-11-11] MEDS: CHOLECALCIFEROL (VIT D3) 1,000 UNIT (25 MCG) TABLET PO SCH (10:44)
[2020-11-11] MEDS: ZINC SULFATE 220 MG CAPSULE (FP) PO SCH (10:44)
[2020-11-11] MEDS: ENOXAPARIN NA (PORCINE) 80 MG/0.8 ML DISP.SYRIN SQ SCH ×2 (10:44→21:52)
[2020-11-11] MEDS: FAMOTIDINE 20 MG TABLET PO SCH ×2 (10:44→21:53)
[2020-11-11] MEDS: amLODIPine BESYLATE 5 MG TABLET (FP) PO SCH (10:45)
[2020-11-11] MEDS: ACETAMINOPHEN 325 MG TABLET (FP) PO PRN (10:45)
[2020-11-11] MEDS: BUDESONIDE/FORMETEROL FUMARATE 160/4.5 mcg INHALER IH SCH ×2 (10:46→21:53)
[2020-11-11] MEDS: DEXAMETHASONE SOD PHOSPHATE 4 MG/1 ML VIAL IVPUSH SCH (10:46)
[2020-11-11] MEDS: ASCORBIC ACID 250 MG TABLET (FP) PO SCH ×2 (10:47→21:53)
[2020-11-11] MEDS ORDERED: PT OWN MED DRAWER 7, Y5N ONE (20:49)
[2020-11-11] MEDS: QUEtiapine FUMARATE 25 MG TABLET PO SCH (21:53)
[2020-11-11] MEDS: MELATONIN 5 MG TABLETS PO SCH (21:53)
[2020-11-12 08:18] LABS: BLOOD UREA NITROGEN 26.3 mg/dL (7-18); CALCIUM 8.7 mg/dL (8.5-10.1); HEMATOCRIT 38.6 % (35.4-49); HEMOGLOBIN 13.1 GM/dL (11.7-16.9); MCH 30.3 pg (25.7-33.7); MCHC 33.8 g/dl (32.0-35.9); MEAN CELL VOLUME 89.5 fl (80-96); MEAN PLT VOLUME 8.4 fl (7.5-11.1); PLATELET COUNT 322 K/MM3 (134-434); RBC 4.31 M/mm3 (4.00-5.60); RDW 14.6 % (11.9-15.9); WHITE BLOOD COUNT 16.2 K/mm3 (4.0-10.0)
[2020-11-12 08:22] LABS: CREATININE 0.7 mg/dL (0.55-1.3)
[2020-11-12 08:30] LABS: POTASSIUM 4.8 mmol/L (3.5-5.1)
[2020-11-12] MEDS: ALBUTEROL SO4 HFA INHALER IH SCH ×4 (09:00→21:41)
[2020-11-12] MEDS: ACETAMINOPHEN 325 MG TABLET (FP) PO PRN (11:21)
[2020-11-12] MEDS: ASCORBIC ACID 250 MG TABLET (FP) PO SCH ×2 (11:22→21:40)
[2020-11-12] MEDS: ENOXAPARIN NA (PORCINE) 80 MG/0.8 ML DISP.SYRIN SQ SCH ×2 (11:22→21:41)
[2020-11-12] MEDS: amLODIPine BESYLATE 5 MG TABLET (FP) PO SCH (11:22)
[2020-11-12] MEDS: BUDESONIDE/FORMETEROL FUMARATE 160/4.5 mcg INHALER IH SCH ×2 (11:22→21:41)
[2020-11-12] MEDS: FAMOTIDINE 20 MG TABLET PO SCH ×2 (11:22→21:40)
[2020-11-12] MEDS: ZINC SULFATE 220 MG CAPSULE (FP) PO SCH (11:23)
[2020-11-12] MEDS: CHOLECALCIFEROL (VIT D3) 1,000 UNIT (25 MCG) TABLET PO SCH (11:23)
[2020-11-12] MEDS: DEXAMETHASONE SOD PHOSPHATE 4 MG/1 ML VIAL IVPUSH SCH (11:23)
[2020-11-12] MEDS: guaiFENesin/CODEINE 5 ML UNIT-DOSE CUPS PO PRN (11:24)
[2020-11-12] MEDS: SODIUM CHLORIDE NASAL SPRAY 44 ML BOTTLE NS PRN (11:24)
[2020-11-12] MEDS ORDERED: SENNOSIDES 8.6MG TABLET (FP) PO PRN (17:13)
[2020-11-12] MEDS: POLYETHYLENE GLYCOL 3350 119 GM BTL PO SCH (18:37)
[2020-11-12] MEDS: QUEtiapine FUMARATE 25 MG TABLET PO SCH (21:40)
[2020-11-12] MEDS: MELATONIN 5 MG TABLETS PO SCH (21:40)
[2020-11-13] MEDS: ALBUTEROL SO4 HFA INHALER IH SCH ×4 (08:30→20:30)
[2020-11-13] MEDS ORDERED: PT OWN MED DRAWER 7, Y5N ONE ×2 (09:55→21:01)
[2020-11-13] MEDS: ENOXAPARIN NA (PORCINE) 80 MG/0.8 ML DISP.SYRIN SQ SCH (09:55)
[2020-11-13] MEDS: FAMOTIDINE 20 MG TABLET PO SCH ×2 (09:56→21:30)
[2020-11-13] MEDS: CHOLECALCIFEROL (VIT D3) 1,000 UNIT (25 MCG) TABLET PO SCH (09:56)
[2020-11-13] MEDS: BUDESONIDE/FORMETEROL FUMARATE 160/4.5 mcg INHALER IH SCH ×2 (09:56→21:30)
[2020-11-13] MEDS: ZINC SULFATE 220 MG CAPSULE (FP) PO SCH (09:56)
[2020-11-13] MEDS: amLODIPine BESYLATE 5 MG TABLET (FP) PO SCH (09:56)
[2020-11-13] MEDS: ASCORBIC ACID 250 MG TABLET (FP) PO SCH ×2 (09:56→21:30)
[2020-11-13] MEDS: DEXAMETHASONE SOD PHOSPHATE 4 MG/1 ML VIAL IVPUSH SCH (09:56)
[2020-11-13] MEDS: POLYETHYLENE GLYCOL 3350 119 GM BTL PO SCH (09:57)
[2020-11-13] MEDS: DOCUSATE SODIUM 100 MG CAPSULE (FP) PO SCH ×2 (15:08→21:30)
[2020-11-13 20:01] LABS: HEMATOCRIT 44.3 % (35.4-49); HEMOGLOBIN 14.9 GM/dL (11.7-16.9); MCHC 33.7 g/dl (32.0-35.9); MEAN CELL VOLUME 89.2 fl (80-96); MEAN PLT VOLUME 8.1 fl (7.5-11.1); PLATELET COUNT 326 K/MM3 (134-434); RBC 4.97 M/mm3 (4.00-5.60); RDW 15.1 % (11.9-15.9); WHITE BLOOD COUNT 16.7 K/mm3 (4.0-10.0)
[2020-11-13] MEDS: MELATONIN 5 MG TABLETS PO SCH (21:30)
[2020-11-13] MEDS: QUEtiapine FUMARATE 25 MG TABLET PO SCH (21:30)
[2020-11-13] MEDS: guaiFENesin/CODEINE 5 ML UNIT-DOSE CUPS PO PRN (21:30)
[2020-11-14] MEDS: DOCUSATE SODIUM 100 MG CAPSULE (FP) PO SCH ×3 (05:45→21:18)
[2020-11-14] MEDS: ALBUTEROL SO4 HFA INHALER IH SCH ×4 (08:35→20:30)
[2020-11-14 08:50] LABS: BASO % 0.2 % (0-2.0); EOS % 0.1 % (0-4.5); HEMATOCRIT 36.9 % (35.4-49); HEMOGLOBIN 12.7 GM/dL (11.7-16.9); LYMPH % 7.6 % (8-40); MCH 30.4 pg (25.7-33.7); MCHC 34.4 g/dl (32.0-35.9); MEAN CELL VOLUME 88.2 fl (80-96); MEAN PLT VOLUME 8.1 fl (7.5-11.1); MONO % 3.7 % (3.8-10.2); NEUT % 88.4 % (42.8-82.8); PLATELET COUNT 312 K/MM3 (134-434); RBC 4.18 M/mm3 (4.00-5.60); RDW 14.9 % (11.9-15.9); WHITE BLOOD COUNT 15.7 K/mm3 (4.0-10.0)
[2020-11-14 09:00] LABS: POTASSIUM 4.8 mmol/L (3.5-5.1)
[2020-11-14 09:03] LABS: CALCIUM 8.5 mg/dL (8.5-10.1)
[2020-11-14 09:04] LABS: ALBUMIN 2.3 g/dl (3.4-5.0); MAGNESIUM 2.3 mg/dL (1.8-2.4)
[2020-11-14 09:08] LABS: CREATININE 0.7 mg/dL (0.55-1.3); PHOSPHOROUS 3.5 mg/dL (2.5-4.9)
[2020-11-14 09:09] LABS: BILIRUBIN,TOTAL 0.7 mg/dL (0.2-1)
[2020-11-14 09:13] LABS: TOT PROT 5.6 g/dl (6.4-8.2)
[2020-11-14] MEDS ORDERED: PT OWN MED DRAWER 7, Y5N ONE ×3 (10:10→20:29)
[2020-11-14] MEDS: DEXAMETHASONE SOD PHOSPHATE 4 MG/1 ML VIAL IVPUSH SCH (10:31)
[2020-11-14] MEDS: BUDESONIDE/FORMETEROL FUMARATE 160/4.5 mcg INHALER IH SCH ×2 (10:32→21:19)
[2020-11-14] MEDS: ASCORBIC ACID 250 MG TABLET (FP) PO SCH ×2 (10:32→21:20)
[2020-11-14] MEDS: ZINC SULFATE 220 MG CAPSULE (FP) PO SCH (10:32)
[2020-11-14] MEDS: FAMOTIDINE 20 MG TABLET PO SCH ×2 (10:32→21:19)
[2020-11-14] MEDS: amLODIPine BESYLATE 5 MG TABLET (FP) PO SCH (10:32)
[2020-11-14] MEDS: CHOLECALCIFEROL (VIT D3) 1,000 UNIT (25 MCG) TABLET PO SCH (10:32)
[2020-11-14] MEDS: POLYETHYLENE GLYCOL 3350 119 GM BTL PO SCH (10:49)
[2020-11-14 13:02] LABS: ANISOCYTOSIS 1+; MACROCYTOSIS 1+; PLATELET ESTIMATE NORMAL
[2020-11-14] MEDS: MELATONIN 5 MG TABLETS PO SCH (21:18)
[2020-11-14] MEDS: QUEtiapine FUMARATE 25 MG TABLET PO SCH (21:19)
[2020-11-14] MEDS: guaiFENesin/CODEINE 5 ML UNIT-DOSE CUPS PO PRN (21:20)
[2020-11-15] MEDS: DOCUSATE SODIUM 100 MG CAPSULE (FP) PO SCH ×3 (06:09→22:00)
[2020-11-15 07:51] LABS: BASO % 0.2 % (0-2.0); EOS % 0.3 % (0-4.5); HEMATOCRIT 38.7 % (35.4-49); HEMOGLOBIN 13.2 GM/dL (11.7-16.9); LYMPH % 8.3 % (8-40); MCH 30.2 pg (25.7-33.7); MCHC 34.1 g/dl (32.0-35.9); MEAN CELL VOLUME 88.7 fl (80-96); MEAN PLT VOLUME 8.3 fl (7.5-11.1); MONO % 3.8 % (3.8-10.2); NEUT % 87.4 % (42.8-82.8); PLATELET COUNT 268 K/MM3 (134-434); RBC 4.36 M/mm3 (4.00-5.60); RDW 14.8 % (11.9-15.9); WHITE BLOOD COUNT 16.6 K/mm3 (4.0-10.0)
[2020-11-15 08:11] LABS: POTASSIUM 4.6 mmol/L (3.5-5.1)
[2020-11-15 08:15] LABS: ALBUMIN 2.4 g/dl (3.4-5.0); CALCIUM 8.6 mg/dL (8.5-10.1); MAGNESIUM 2.2 mg/dL (1.8-2.4)
[2020-11-15 08:16] LABS: BLOOD UREA NITROGEN 29.8 mg/dL (7-18)
[2020-11-15 08:18] LABS: CREATININE 0.8 mg/dL (0.55-1.3); PHOSPHOROUS 3.3 mg/dL (2.5-4.9)
[2020-11-15 08:20] LABS: BILIRUBIN,TOTAL 0.5 mg/dL (0.2-1)
[2020-11-15 08:55] LABS: ANISOCYTOSIS 1+; MACROCYTOSIS 1+; PLATELET ESTIMATE NORMAL
[2020-11-15] MEDS: ALBUTEROL SO4 HFA INHALER IH SCH ×4 (09:00→21:59)
[2020-11-15] MEDS ORDERED: ENOXAPARIN NA (PORCINE) 40 MG/0.4 ML DISP.SYRIN SQ SCH ×2 (10:00→22:00)
[2020-11-15] MEDS: CHOLECALCIFEROL (VIT D3) 1,000 UNIT (25 MCG) TABLET PO SCH (11:20)
[2020-11-15] MEDS: ZINC SULFATE 220 MG CAPSULE (FP) PO SCH (11:20)
[2020-11-15] MEDS: ACETAMINOPHEN 325 MG TABLET (FP) PO PRN (11:21)
[2020-11-15] MEDS: amLODIPine BESYLATE 5 MG TABLET (FP) PO SCH (11:21)
[2020-11-15] MEDS: BUDESONIDE/FORMETEROL FUMARATE 160/4.5 mcg INHALER IH SCH ×2 (11:22→22:16)
[2020-11-15] MEDS: FAMOTIDINE 20 MG TABLET PO SCH ×2 (11:22→22:00)
[2020-11-15] MEDS: DEXAMETHASONE SOD PHOSPHATE 4 MG/1 ML VIAL IVPUSH SCH (11:22)
[2020-11-15] MEDS: POLYETHYLENE GLYCOL 3350 119 GM BTL PO SCH (11:22)
[2020-11-15] MEDS: ASCORBIC ACID 250 MG TABLET (FP) PO SCH ×2 (11:23→22:01)
[2020-11-15] MEDS ORDERED: SENNOSIDES 8.6MG TABLET (FP) PO PRN (20:04)
[2020-11-15] MEDS ORDERED: SODIUM CHLORIDE NASAL SPRAY 44 ML BOTTLE NS PRN (20:04)
[2020-11-15] MEDS ORDERED: guaiFENesin/CODEINE 5 ML UNIT-DOSE CUPS PO PRN (20:04)
[2020-11-15] MEDS ORDERED: ACETAMINOPHEN 325 MG TABLET (FP) PO PRN (20:04)
[2020-11-15] MEDS ORDERED: ENOXAPARIN NA (PORCINE) 60 MG/0.6 ML DISP.SYRIN SQ SCH (22:00)
[2020-11-15] MEDS: QUEtiapine FUMARATE 25 MG TABLET PO SCH (22:00)
[2020-11-15] MEDS: MELATONIN 5 MG TABLETS PO SCH (22:00)
[2020-11-15] MEDS: ENOXAPARIN NA (PORCINE) 40 MG/0.4 ML DISP.SYRIN SQ SCH (22:05)
[2020-11-16] MEDS: DOCUSATE SODIUM 100 MG CAPSULE (FP) PO SCH ×3 (06:33→21:16)
[2020-11-16 07:08] LABS: BASO % 0.2 % (0-2.0); EOS % 0.4 % (0-4.5); HEMATOCRIT 36.6 % (35.4-49); HEMOGLOBIN 12.5 GM/dL (11.7-16.9); LYMPH % 10.2 % (8-40); MCH 30.1 pg (25.7-33.7); MEAN CELL VOLUME 88.5 fl (80-96); MEAN PLT VOLUME 7.9 fl (7.5-11.1); MONO % 4.8 % (3.8-10.2); NEUT % 84.4 % (42.8-82.8); PLATELET COUNT 234 K/MM3 (134-434); RBC 4.13 M/mm3 (4.00-5.60); WHITE BLOOD COUNT 14.5 K/mm3 (4.0-10.0)
[2020-11-16 07:50] LABS: ALBUMIN 2.3 g/dl (3.4-5.0); BILIRUBIN,TOTAL 0.4 mg/dL (0.2-1); BLOOD UREA NITROGEN 33.7 mg/dL (7-18); CALCIUM 8.6 mg/dL (8.5-10.1); CREATININE 0.7 mg/dL (0.55-1.3); MAGNESIUM 2.3 mg/dL (1.8-2.4); PHOSPHOROUS 3.7 mg/dL (2.5-4.9); POTASSIUM 4.7 mmol/L (3.5-5.1); TOT PROT 5.6 g/dl (6.4-8.2)
[2020-11-16] MEDS: ALBUTEROL SO4 HFA INHALER IH SCH ×5 (08:00→21:16)
[2020-11-16 08:58] LABS: ANISOCYTOSIS 1+; MACROCYTOSIS 0; PLATELET ESTIMATE NORMAL
[2020-11-16] MEDS ORDERED: PT OWN MED DRAWER 7, Y5N ONE ×2 (10:19→21:04)
[2020-11-16] MEDS: ASCORBIC ACID 250 MG TABLET (FP) PO SCH ×2 (10:21→21:16)
[2020-11-16] MEDS: DEXAMETHASONE SOD PHOSPHATE 4 MG/1 ML VIAL IVPUSH SCH (10:23)
[2020-11-16] MEDS: FAMOTIDINE 20 MG TABLET PO SCH ×2 (10:23→21:16)
[2020-11-16] MEDS: CHOLECALCIFEROL (VIT D3) 1,000 UNIT (25 MCG) TABLET PO SCH (10:26)
[2020-11-16] MEDS: BUDESONIDE/FORMETEROL FUMARATE 160/4.5 mcg INHALER IH SCH ×2 (10:27→21:16)
[2020-11-16] MEDS: amLODIPine BESYLATE 5 MG TABLET (FP) PO SCH (10:27)
[2020-11-16] MEDS: ENOXAPARIN NA (PORCINE) 40 MG/0.4 ML DISP.SYRIN SQ SCH ×2 (10:28→21:15)
[2020-11-16] MEDS: POLYETHYLENE GLYCOL 3350 119 GM BTL PO SCH (10:30)
[2020-11-16] MEDS: ZINC SULFATE 220 MG CAPSULE (FP) PO SCH (15:48)
[2020-11-16] MEDS: MELATONIN 5 MG TABLETS PO SCH (21:16)
[2020-11-16] MEDS: QUEtiapine FUMARATE 25 MG TABLET PO SCH (21:16)
[2020-11-17] MEDS: DOCUSATE SODIUM 100 MG CAPSULE (FP) PO SCH ×3 (06:01→21:12)
[2020-11-17 06:42] LABS: HEMATOCRIT 38.1 % (35.4-49); HEMOGLOBIN 12.7 GM/dL (11.7-16.9); MCH 29.7 pg (25.7-33.7); MCHC 33.4 g/dl (32.0-35.9); PLATELET COUNT 245 K/MM3 (134-434); RBC 4.28 M/mm3 (4.00-5.60); RDW 14.8 % (11.9-15.9); WHITE BLOOD COUNT 16.4 K/mm3 (4.0-10.0)
[2020-11-17 07:03] LABS: POTASSIUM 5.4 mmol/L (3.5-5.1)
[2020-11-17 07:05] LABS: CALCIUM 8.7 mg/dL (8.5-10.1)
[2020-11-17 07:09] LABS: CREATININE 0.9 mg/dL (0.55-1.3)
[2020-11-17] MEDS: ALBUTEROL SO4 HFA INHALER IH SCH ×4 (08:19→21:12)
[2020-11-17] MEDS: CHOLECALCIFEROL (VIT D3) 1,000 UNIT (25 MCG) TABLET PO SCH (09:35)
[2020-11-17] MEDS: DEXAMETHASONE SOD PHOSPHATE 4 MG/1 ML VIAL IVPUSH SCH (09:35)
[2020-11-17] MEDS: POLYETHYLENE GLYCOL 3350 119 GM BTL PO SCH (09:35)
[2020-11-17] MEDS: ENOXAPARIN NA (PORCINE) 40 MG/0.4 ML DISP.SYRIN SQ SCH ×2 (09:35→21:12)
[2020-11-17] MEDS: BUDESONIDE/FORMETEROL FUMARATE 160/4.5 mcg INHALER IH SCH ×2 (09:36→21:12)
[2020-11-17] MEDS: FAMOTIDINE 20 MG TABLET PO SCH ×2 (09:36→21:12)
[2020-11-17] MEDS: amLODIPine BESYLATE 5 MG TABLET (FP) PO SCH (09:36)
[2020-11-17] MEDS: ZINC SULFATE 220 MG CAPSULE (FP) PO SCH (09:36)
[2020-11-17] MEDS: ASCORBIC ACID 250 MG TABLET (FP) PO SCH ×2 (09:36→21:12)
[2020-11-17] MEDS: MELATONIN 5 MG TABLETS PO SCH (21:11)
[2020-11-17] MEDS: QUEtiapine FUMARATE 25 MG TABLET PO SCH (21:12)
[2020-11-18] MEDS: DOCUSATE SODIUM 100 MG CAPSULE (FP) PO SCH ×2 (06:10→18:13)
[2020-11-18 07:17] LABS: BASO % 0.1 % (0-2.0); EOS % 0.4 % (0-4.5); HEMATOCRIT 37.6 % (35.4-49); HEMOGLOBIN 12.8 GM/dL (11.7-16.9); LYMPH % 9.3 % (8-40); MCH 30.1 pg (25.7-33.7); MEAN CELL VOLUME 88.7 fl (80-96); MEAN PLT VOLUME 7.9 fl (7.5-11.1); MONO % 5.2 % (3.8-10.2); PLATELET COUNT 243 K/MM3 (134-434); RBC 4.24 M/mm3 (4.00-5.60); RDW 14.8 % (11.9-15.9)
[2020-11-18 07:48] LABS: POTASSIUM 4.5 mmol/L (3.5-5.1)
[2020-11-18 07:50] LABS: CALCIUM 8.8 mg/dL (8.5-10.1)
[2020-11-18] MEDS ORDERED: MINERAL OIL ENEMA 133 ML ENEMA RC ONE (07:50)
[2020-11-18 07:51] LABS: BLOOD UREA NITROGEN 25.4 mg/dL (7-18)
[2020-11-18 07:54] LABS: CREATININE 0.8 mg/dL (0.55-1.3)
[2020-11-18] MEDS: POLYETHYLENE GLYCOL 3350 119 GM BTL PO SCH (09:07)
[2020-11-18] MEDS: FAMOTIDINE 20 MG TABLET PO SCH ×2 (09:08→22:30)
[2020-11-18] MEDS: CHOLECALCIFEROL (VIT D3) 1,000 UNIT (25 MCG) TABLET PO SCH (09:08)
[2020-11-18] MEDS: amLODIPine BESYLATE 5 MG TABLET (FP) PO SCH (09:08)
[2020-11-18] MEDS: DEXAMETHASONE SOD PHOSPHATE 4 MG/1 ML VIAL IVPUSH SCH (09:09)
[2020-11-18] MEDS: ENOXAPARIN NA (PORCINE) 40 MG/0.4 ML DISP.SYRIN SQ SCH ×2 (09:10→22:30)
[2020-11-18] MEDS: ALBUTEROL SO4 HFA INHALER IH SCH ×3 (09:11→20:45)
[2020-11-18] MEDS: BUDESONIDE/FORMETEROL FUMARATE 160/4.5 mcg INHALER IH SCH ×2 (09:16→22:30)
[2020-11-18] MEDS: ASCORBIC ACID 250 MG TABLET (FP) PO SCH ×2 (12:30→22:30)
[2020-11-18] MEDS: ZINC SULFATE 220 MG CAPSULE (FP) PO SCH (12:30)
[2020-11-18] MEDS: MELATONIN 5 MG TABLETS PO SCH (22:30)
[2020-11-18] MEDS: QUEtiapine FUMARATE 25 MG TABLET PO SCH (22:30)
[2020-11-19] MEDS: DOCUSATE SODIUM 100 MG CAPSULE (FP) PO SCH ×4 (03:52→22:38)
[2020-11-19] MEDS: CHOLECALCIFEROL (VIT D3) 1,000 UNIT (25 MCG) TABLET PO SCH (10:04)
[2020-11-19] MEDS: DEXAMETHASONE SOD PHOSPHATE 4 MG/1 ML VIAL IVPUSH SCH (10:04)
[2020-11-19] MEDS: amLODIPine BESYLATE 5 MG TABLET (FP) PO SCH (10:04)
[2020-11-19] MEDS: ENOXAPARIN NA (PORCINE) 40 MG/0.4 ML DISP.SYRIN SQ SCH ×2 (10:04→22:38)
[2020-11-19] MEDS: FAMOTIDINE 20 MG TABLET PO SCH ×2 (10:04→22:37)
[2020-11-19] MEDS: ZINC SULFATE 220 MG CAPSULE (FP) PO SCH (10:04)
[2020-11-19] MEDS: ALBUTEROL SO4 HFA INHALER IH SCH ×3 (10:04→20:42)
[2020-11-19] MEDS: POLYETHYLENE GLYCOL 3350 119 GM BTL PO SCH (10:05)
[2020-11-19] MEDS: ASCORBIC ACID 250 MG TABLET (FP) PO SCH ×2 (10:05→22:37)
[2020-11-19] MEDS: BUDESONIDE/FORMETEROL FUMARATE 160/4.5 mcg INHALER IH SCH ×2 (10:05→22:38)
[2020-11-19] MEDS: MELATONIN 5 MG TABLETS PO SCH (22:37)
[2020-11-19] MEDS: QUEtiapine FUMARATE 25 MG TABLET PO SCH (22:37)
[2020-11-20] MEDS: DOCUSATE SODIUM 100 MG CAPSULE (FP) PO SCH ×3 (06:30→21:15)
[2020-11-20 08:08] LABS: POTASSIUM 4.3 mmol/L (3.5-5.1)
[2020-11-20 08:11] LABS: ALBUMIN 2.3 g/dl (3.4-5.0); BLOOD UREA NITROGEN 27.9 mg/dL (7-18); CALCIUM 8.4 mg/dL (8.5-10.1)
[2020-11-20 08:14] LABS: CREATININE 0.8 mg/dL (0.55-1.3)
[2020-11-20] MEDS ORDERED: ACETAMINOPHEN 325 MG TABLET (FP) PO PRN (08:14)
[2020-11-20] MEDS ORDERED: guaiFENesin/CODEINE 5 ML UNIT-DOSE CUPS PO PRN (08:14)
[2020-11-20] MEDS ORDERED: SENNOSIDES 8.6MG TABLET (FP) PO PRN (08:14)
[2020-11-20] MEDS ORDERED: SODIUM CHLORIDE NASAL SPRAY 44 ML BOTTLE NS PRN (08:14)
[2020-11-20 08:16] LABS: BILIRUBIN,TOTAL 0.4 mg/dL (0.2-1); TOT PROT 5.9 g/dl (6.4-8.2)
[2020-11-20 08:33] LABS: BASO % 0.3 % (0-2.0); EOS % 0.8 % (0-4.5); HEMATOCRIT 33.8 % (35.4-49); HEMOGLOBIN 11.3 GM/dL (11.7-16.9); LYMPH % 10.4 % (8-40); MCH 29.9 pg (25.7-33.7); MCHC 33.6 g/dl (32.0-35.9); MEAN CELL VOLUME 89.2 fl (80-96); MEAN PLT VOLUME 8.8 fl (7.5-11.1); MONO % 3.7 % (3.8-10.2); NEUT % 84.8 % (42.8-82.8); PLATELET COUNT 239 K/MM3 (134-434); RBC 3.79 M/mm3 (4.00-5.60); RDW 15.3 % (11.9-15.9); WHITE BLOOD COUNT 17.4 K/mm3 (4.0-10.0)
[2020-11-20] MEDS: POLYETHYLENE GLYCOL 3350 119 GM BTL PO SCH (10:00)
[2020-11-20] MEDS: ENOXAPARIN NA (PORCINE) 40 MG/0.4 ML DISP.SYRIN SQ SCH ×2 (10:46→21:16)
[2020-11-20] MEDS: DEXAMETHASONE SOD PHOSPHATE 4 MG/1 ML VIAL IVPUSH SCH (10:48)
[2020-11-20] MEDS: ASCORBIC ACID 250 MG TABLET (FP) PO SCH ×2 (10:49→21:15)
[2020-11-20] MEDS: CHOLECALCIFEROL (VIT D3) 1,000 UNIT (25 MCG) TABLET PO SCH (10:49)
[2020-11-20] MEDS: FAMOTIDINE 20 MG TABLET PO SCH ×2 (10:50→21:15)
[2020-11-20] MEDS: amLODIPine BESYLATE 5 MG TABLET (FP) PO SCH (10:50)
[2020-11-20] MEDS: BUDESONIDE/FORMETEROL FUMARATE 160/4.5 mcg INHALER IH SCH ×2 (10:50→21:17)
[2020-11-20] MEDS: ZINC SULFATE 220 MG CAPSULE (FP) PO SCH (10:50)
[2020-11-20 11:01] LABS: ANISOCYTOSIS 1+; MACROCYTOSIS 0; PLATELET ESTIMATE NORMAL
[2020-11-20] MEDS: ALBUTEROL SO4 HFA INHALER IH SCH ×3 (12:50→21:18)
[2020-11-20] MEDS ORDERED: SODIUM CHLORIDE 1,000 ML IV SCH (17:15)
[2020-11-20] MEDS: MELATONIN 5 MG TABLETS PO SCH (21:15)
[2020-11-20] MEDS: QUEtiapine FUMARATE 25 MG TABLET PO SCH (21:16)
[2020-11-21] MEDS: DOCUSATE SODIUM 100 MG CAPSULE (FP) PO SCH ×3 (06:28→22:10)
[2020-11-21 07:20] LABS: BASO % 0.3 % (0-2.0); EOS % 0.4 % (0-4.5); HEMATOCRIT 34.8 % (35.4-49); HEMOGLOBIN 11.6 GM/dL (11.7-16.9); LYMPH % 9.8 % (8-40); MCH 29.8 pg (25.7-33.7); MCHC 33.3 g/dl (32.0-35.9); MEAN CELL VOLUME 89.3 fl (80-96); MEAN PLT VOLUME 8.1 fl (7.5-11.1); MONO % 4.4 % (3.8-10.2); NEUT % 85.1 % (42.8-82.8); PLATELET COUNT 268 K/MM3 (134-434); RBC 3.89 M/mm3 (4.00-5.60); RDW 15.3 % (11.9-15.9)
[2020-11-21 07:35] LABS: POTASSIUM 4.5 mmol/L (3.5-5.1)
[2020-11-21 07:40] LABS: CALCIUM 8.9 mg/dL (8.5-10.1)
[2020-11-21 07:41] LABS: ALBUMIN 2.3 g/dl (3.4-5.0); MAGNESIUM 2.3 mg/dL (1.8-2.4)
[2020-11-21 07:44] LABS: CREATININE 0.7 mg/dL (0.55-1.3); PHOSPHOROUS 3.5 mg/dL (2.5-4.9)
[2020-11-21 07:45] LABS: BILIRUBIN,TOTAL 0.3 mg/dL (0.2-1)
[2020-11-21 07:46] LABS: TOT PROT 5.7 g/dl (6.4-8.2)
[2020-11-21] MEDS: ALBUTEROL SO4 HFA INHALER IH SCH ×4 (08:05→22:10)
[2020-11-21 08:59] LABS: ANISOCYTOSIS 1+; MACROCYTOSIS 0; PLATELET ESTIMATE NORMAL
[2020-11-21] MEDS: ASCORBIC ACID 250 MG TABLET (FP) PO SCH ×2 (10:06→22:12)
[2020-11-21] MEDS: DEXAMETHASONE SOD PHOSPHATE 4 MG/1 ML VIAL IVPUSH SCH (10:06)
[2020-11-21] MEDS: amLODIPine BESYLATE 5 MG TABLET (FP) PO SCH (10:06)
[2020-11-21] MEDS: CHOLECALCIFEROL (VIT D3) 1,000 UNIT (25 MCG) TABLET PO SCH (10:06)
[2020-11-21] MEDS: POLYETHYLENE GLYCOL 3350 119 GM BTL PO SCH (10:07)
[2020-11-21] MEDS: ZINC SULFATE 220 MG CAPSULE (FP) PO SCH (10:07)
[2020-11-21] MEDS: BUDESONIDE/FORMETEROL FUMARATE 160/4.5 mcg INHALER IH SCH ×2 (10:07→22:12)
[2020-11-21] MEDS: FAMOTIDINE 20 MG TABLET PO SCH ×2 (10:07→22:12)
[2020-11-21] MEDS: ENOXAPARIN NA (PORCINE) 40 MG/0.4 ML DISP.SYRIN SQ SCH ×2 (10:07→22:11)
[2020-11-21] MEDS: QUEtiapine FUMARATE 25 MG TABLET PO SCH (22:11)
[2020-11-21] MEDS: MELATONIN 5 MG TABLETS PO SCH (22:12)
[2020-11-22] MEDS: DOCUSATE SODIUM 100 MG CAPSULE (FP) PO SCH ×3 (07:29→21:24)
[2020-11-22 08:05] LABS: BASO % 0.4 % (0-2.0); EOS % 0.3 % (0-4.5); HEMATOCRIT 35.3 % (35.4-49); HEMOGLOBIN 11.7 GM/dL (11.7-16.9); LYMPH % 11.5 % (8-40); MCH 29.6 pg (25.7-33.7); MCHC 33.1 g/dl (32.0-35.9); MEAN CELL VOLUME 89.4 fl (80-96); MEAN PLT VOLUME 8.4 fl (7.5-11.1); MONO % 4.9 % (3.8-10.2); NEUT % 82.9 % (42.8-82.8); PLATELET COUNT 284 K/MM3 (134-434); RBC 3.95 M/mm3 (4.00-5.60); RDW 15.3 % (11.9-15.9); WHITE BLOOD COUNT 17.1 K/mm3 (4.0-10.0)
[2020-11-22] MEDS: ALBUTEROL SO4 HFA INHALER IH SCH ×4 (08:09→20:30)
[2020-11-22 08:22] LABS: POTASSIUM 4.5 mmol/L (3.5-5.1)
[2020-11-22 08:24] LABS: ALBUMIN 2.4 g/dl (3.4-5.0); CALCIUM 8.6 mg/dL (8.5-10.1)
[2020-11-22 08:25] LABS: BLOOD UREA NITROGEN 25.1 mg/dL (7-18); MAGNESIUM 2.3 mg/dL (1.8-2.4)
[2020-11-22 08:28] LABS: CREATININE 0.7 mg/dL (0.55-1.3); PHOSPHOROUS 3.7 mg/dL (2.5-4.9)
[2020-11-22 08:29] LABS: BILIRUBIN,TOTAL 0.2 mg/dL (0.2-1); TOT PROT 5.8 g/dl (6.4-8.2)
[2020-11-22] MEDS: ASCORBIC ACID 250 MG TABLET (FP) PO SCH ×2 (10:08→21:18)
[2020-11-22] MEDS: CHOLECALCIFEROL (VIT D3) 1,000 UNIT (25 MCG) TABLET PO SCH (10:08)
[2020-11-22] MEDS: BUDESONIDE/FORMETEROL FUMARATE 160/4.5 mcg INHALER IH SCH ×2 (10:08→21:19)
[2020-11-22] MEDS: FAMOTIDINE 20 MG TABLET PO SCH ×2 (10:08→21:18)
[2020-11-22] MEDS: ZINC SULFATE 220 MG CAPSULE (FP) PO SCH (10:08)
[2020-11-22] MEDS: amLODIPine BESYLATE 5 MG TABLET (FP) PO SCH (10:08)
[2020-11-22] MEDS: POLYETHYLENE GLYCOL 3350 119 GM BTL PO SCH (10:08)
[2020-11-22] MEDS: DEXAMETHASONE SOD PHOSPHATE 4 MG/1 ML VIAL IVPUSH SCH (10:09)
[2020-11-22] MEDS: ENOXAPARIN NA (PORCINE) 40 MG/0.4 ML DISP.SYRIN SQ SCH ×2 (10:09→21:17)
[2020-11-22 10:59] LABS: ANISOCYTOSIS 0; MACROCYTOSIS 0; PLATELET ESTIMATE NORMAL
[2020-11-22] MEDS: QUEtiapine FUMARATE 25 MG TABLET PO SCH (21:18)
[2020-11-22] MEDS: MELATONIN 5 MG TABLETS PO SCH (21:18)
[2020-11-23] MEDS: DOCUSATE SODIUM 100 MG CAPSULE (FP) PO SCH ×3 (05:45→21:24)
[2020-11-23 07:13] LABS: BASO % 0.7 % (0-2.0); EOS % 0.1 % (0-4.5); HEMATOCRIT 34.5 % (35.4-49); HEMOGLOBIN 11.3 GM/dL (11.7-16.9); LYMPH % 11.1 % (8-40); MCH 29.4 pg (25.7-33.7); MCHC 32.7 g/dl (32.0-35.9); MEAN CELL VOLUME 89.7 fl (80-96); MEAN PLT VOLUME 8.3 fl (7.5-11.1); MONO % 5.6 % (3.8-10.2); NEUT % 82.5 % (42.8-82.8); PLATELET COUNT 301 K/MM3 (134-434); RBC 3.85 M/mm3 (4.00-5.60); RDW 15.5 % (11.9-15.9); WHITE BLOOD COUNT 18.1 K/mm3 (4.0-10.0)
[2020-11-23 07:45] LABS: POTASSIUM 4.3 mmol/L (3.5-5.1)
[2020-11-23 07:47] LABS: ALBUMIN 2.4 g/dl (3.4-5.0); CALCIUM 8.6 mg/dL (8.5-10.1)
[2020-11-23 07:48] LABS: BLOOD UREA NITROGEN 31.5 mg/dL (7-18); MAGNESIUM 2.3 mg/dL (1.8-2.4)
[2020-11-23 07:50] LABS: PHOSPHOROUS 3.6 mg/dL (2.5-4.9)
[2020-11-23 07:51] LABS: CREATININE 0.7 mg/dL (0.55-1.3)
[2020-11-23 07:52] LABS: BILIRUBIN,TOTAL 0.5 mg/dL (0.2-1); TOT PROT 5.7 g/dl (6.4-8.2)
[2020-11-23] MEDS: ALBUTEROL SO4 HFA INHALER IH SCH ×4 (08:30→20:25)
[2020-11-23] MEDS ORDERED: predniSONE 20 MG TABLET (UD) PO SCH (10:00)
[2020-11-23 10:31] LABS: PLATELET ESTIMATE ADEQUATE
[2020-11-23] MEDS: POLYETHYLENE GLYCOL 3350 119 GM BTL PO SCH (10:54)
[2020-11-23] MEDS: amLODIPine BESYLATE 5 MG TABLET (FP) PO SCH (10:54)
[2020-11-23] MEDS: ZINC SULFATE 220 MG CAPSULE (FP) PO SCH (10:54)
[2020-11-23] MEDS: BUDESONIDE/FORMETEROL FUMARATE 160/4.5 mcg INHALER IH SCH ×2 (10:55→21:22)
[2020-11-23] MEDS: FAMOTIDINE 20 MG TABLET PO SCH ×2 (10:55→21:24)
[2020-11-23] MEDS: ASCORBIC ACID 250 MG TABLET (FP) PO SCH ×2 (10:55→21:24)
[2020-11-23] MEDS: CHOLECALCIFEROL (VIT D3) 1,000 UNIT (25 MCG) TABLET PO SCH (10:55)
[2020-11-23 21:05] VITALS: BP 150/69; PULSE 81; TEMP 98
[2020-11-23] MEDS: QUEtiapine FUMARATE 25 MG TABLET PO SCH (21:24)
[2020-11-23] MEDS: MELATONIN 5 MG TABLETS PO SCH (21:24)
== END 2020-11-24 00:30 | DRG 177 ==
LOC: JER 16:47 → JERBED 18:01 → J8W 11-01 00:31 → JICU 11-15 20:12 → J4W 11-18 16:13
PROVIDERS: ADMIT Hospitalist; ATTEND Internal Medicine
PROC: XW033E5 Introduction of Remdesivir Anti-infective into Peripheral Vein, Percutaneous Approach, New Technology Group 5 (ICD-10-PCS; principal; 2020-11-02)
PROC: XW13325 Transfusion of Convalescent Plasma (Nonautologous) into Peripheral Vein, Percutaneous Approach, New Technology Group 5 (ICD-10-PCS; 2020-11-02)
DX: U07.1 COVID-19 (principal); J96.01 Acute respiratory failure with hypoxia; J12.82 Pneumonia due to coronavirus disease 2019; E87.1 Hypo-osmolality and hyponatremia; I10 Essential (primary) hypertension; E78.5 Hyperlipidemia, unspecified; K21.9 Gastro-esophageal reflux disease without esophagitis; F32.9 Major depressive disorder, single episode, unspecified; J98.2 Interstitial emphysema; R04.0 Epistaxis; D72.829 Elevated white blood cell count, unspecified; R74.01 Elevation of levels of liver transaminase levels
CPT/HCPCS: 36415; 36430; 71045-TC-FY; 71275-TC; 80048; 80053; 81003; 82248; 82550; 82553; 82728; 82803; 83605; 83615; 83735; 83930; 83935; 84100; 84300; 84484; 85025; 85027; 85379; 85610; 85651; 85730; 86140; 86769; 86850; 86900; 86901; 87040; 87070; 87086; 87205; 87804; 87899; 93005; 93010; 97116-GP; 97161-GP; 99285-25; C9399; C9803; P9017; U0003

== ENCOUNTER 2024-09-17 04:05 | Day surgery (SDC) | payer OTHER ==
[2024-09-16 14:08] VITALS: BMI 24.1
[2024-09-17] MEDS ORDERED: PROPOFOL 40 ML ONE (07:43)
[2024-09-17] MEDS ORDERED: MIDAZOLAM HCL 2 MG/2 ML SINGLE DOSE VIAL ONE (07:43)
[2024-09-17] MEDS ORDERED: GENTAMICIN SO4 80 MG/2 ML VIAL ONE ×3 (07:45→08:56)
[2024-09-17] MEDS ORDERED: VANCOMYCIN 1,000 MG VIAL (RESTRICTED TO ID ONLY) ONE ×3 (07:45→10:37)
[2024-09-17] MEDS ORDERED: SUCCINYLCHOLINE CHLORIDE 200 MG/10 ML SYRINGE ONE (07:45)
[2024-09-17] MEDS: ceFAZolin SODIUM 1 GM VIAL IVPB ONE (10:18)
[2024-09-17] MEDS ORDERED: SODIUM CHLORIDE 0.9% P/F 10 ML VIAL IJ ONE (10:20)
[2024-09-17] MEDS: BUPIVACAINE HCL/PF 0.5% (5MG/ML) 10 ML VIAL IJ ONE (10:52)
[2024-09-17] MEDS: LIDOCAINE HCL 1%, 10 MG/ML (20ML VIAL) INF ONE (10:52)
[2024-09-17] MEDS ORDERED: KETOROLAC TROMETHAMINE 30 MG/1 ML VIAL ONE (11:13)
[2024-09-17] MEDS ORDERED: ONDANSETRON 4 MG/2 ML VIAL IVPUSH PRN (12:32)
[2024-09-17] MEDS ORDERED: oxyCODONE HCL 5 MG TABLET PO PRN (12:32)
[2024-09-17] MEDS ORDERED: LACTATED RINGERS SOLUTION 1,000 ML IV SCH (12:45)
[2024-09-17] MEDS ORDERED: ACETAMINOPHEN INJECTION 100 ML ONE (13:04)
[2024-09-17] MEDS: ACETAMINOPHEN 1000 MG/100 ML BAG IVPB ONE (13:11)
[2024-09-17 15:10] VITALS: RESP 18
[2024-09-17 16:09] VITALS: BP 135/64; PULSE 92; TEMP 97.7
== END 2024-09-17 17:15 | disposition home or self-care (01) ==
LOC: JASU-SURG 04:05
PROVIDERS: ATTEND Urology
PROC: 0VUS0JZ Supplement Penis with Synthetic Substitute, Open Approach (ICD-10-PCS; principal; 2024-09-17 08:00)
DX: N52.9 Male erectile dysfunction, unspecified (principal)
CPT/HCPCS: 54405; C1813; 94760; C2622; J0131